=== PATIENT | female | born 2005 | race Caucasian/White ===

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

== ENCOUNTER → 2025-02-27 | Outpatient (CLI) | payer BC, SELFPAY | END | disposition home or self-care (01) | LOC: LABSPEC 11:52 | PROVIDERS: Visit Provider Nurse Practitioner Family | DX: Z11.3 Encounter for screening for infections with a predominantly sexual mode of transmission (principal) | CPT/HCPCS: 87491; 87591 ==

== ENCOUNTER 2025-03-22 00:13 | Emergency (ER) | payer BC, SELFPAY ==
[2025-03-22 00:14] VITALS: BP 143/91; PULSE 95; RESP 18; TEMP 36.8; O2SAT 100; BMI 24.0
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
[2025-03-22 01:04] LABS: Internal QC Validated? YES +Cl - CLEAR BKGD; Pregnancy, Serum, hCG Quali. NEGATIVE Negative
[2025-03-22 01:12] LABS: Anion Gap 13 (5-15); BUN 12 mg/dL (4-19); BUN/Creat Ratio 14.7 RATIO (10-20); Calcium,Total 9.4 mg/dL (7.6-11.0); Carbon Dioxide 19.2 mmol/L (21.0-32.0); Chloride 105 mmol/L (98-108); Estimated Creatinine Clearance 108.60 ml/min (50-250); Glucose 113 mg/dL (70-99); Potassium 3.9 mmol/L (3.3-5.1)
--- OUTSIDE RECORDS SUMMARY | 2025-03-22 01:17 | XMS RPT_ITS | CCD ---
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 L 500.4050, L100.0100 #### [facility] [address] [place], [address] MCHC (RBC) [Mass/Vol] 36.0 g/dL Normal 32-36 [facility] Comment on above: Performed By: #### L 500.4050, L100.0100 #### [facility] [address] [place], [address] MCV (RBC) [Entitic vol] 80.7 fL Normal 78-96 [facility] Comment on above: Performed By: #### L 500.4050, L100.0100 #### [facility] [address] [place], [address] Monocytes/100 WBC (Bld) 2.9 % Low 3-6 [facility] Comment on above: Performed By: #### L 500.4050, L100.0100 #### [facility] [address] [place], [address] Neutrophils/100 WBC (Bld) 83.1 % High 34-64 [facility] Comment on above: Performed By: #### L 500.4050, L100.0100 #### [facility] [address] [place], [address] Nucleated RBC (Bld) [#/Vol] 0 10*3/uL Normal 0-5 [facility] Comment on above: Performed By: #### L 500.4050, L100.0100 #### [facility] [address] [place], [address] Platelet mean volume (Bld) [Entitic vol] 10.2 fL Normal 6.2-12.0 [facility] Comment on above: Performed By: #### L 500.4050, L100.0100 #### [facility] [address] [place], [address] Platelets (Bld) [#/Vol] 230 10*3/uL Normal 150-450 [facility] Comment on above: Performed By: #### L 500.4050, L100.0100 #### [facility] [address] [place], [address] RBC (Bld) [#/Vol] 3.31 10*6/uL Low 4.1-4.8 [facility] Comment on above: Performed By: #### L 500.4050, L100.0100 #### [facility] [address] [place], [address] RDW SD 37.1 fl Normal 35.1-43.9 [facility] Comment on above: Performed By: #### L 500.4050, L100.0100 #### [facility] [address] [place], [address] WBC (Bld) [#/Vol] 12.7 10*3/uL Normal 4.5-13.0 [facility] Comment on above: Performed By: #### L 500.4050, L100.0100 #### [facility] [address] [place], [address] Carbon dioxide, total [Moles /volume] in Central venous bloodOrdered By: Bo Martinez on 10-29-2024 CO2 [Moles/Vol] 18.8 mmol/L Low 21.0-32.0 [facility] Chloride assayOrdered By: Dean Martinez on 10-29-2024 Chloride [Moles/Vol] 104 mmol/L 98-108 [facility] Comprehensive Metabolic Prof ilon 10-29-2024 Albumin [Mass/Vol] 3.6 g/dL Normal 3.5-5.0 [facility] Comment on above: Performed By: #### L 500.4050, L100.0100 #### [facility] [address] [place], [address] Albumin/Globulin [Mass ratio] 1.2 {ratio} Normal 0.9-2.4 [facility] Comment on above: Performed By: #### L 500.4050, L100.0100 #### [facility] [address] [place], [address] ALK PHOS 109 U/L High 35-104 [facility] Comment on above: Performed By: #### L 500.4050, L100.0100 #### [facility] [address] [place], [address] ALT [Catalytic activity/Vol] 11 U/L Normal <=34 [facility] Comment on above: Performed By: #### L 500.4050, L100.0100 #### [facility] [address] [place], [address] AST [Catalytic activity/Vol] 19 U/L Normal <=31 [facility] Comment on above: Performed By: #### L 500.4050, L100.0100 #### [facility] [address] [place], [address] Bilirubin [Mass/Vol] 0.33 mg/dL Normal 0.00-1.30 [facility] Comment on above: Performed By: #### L 500.4050, L100.0100 #### [facility] [address] [place], [address] BUN/CRE 10.0 RATIO Normal 10-20 [facility] Comment on above: Performed By: #### L 500.4050, L100.0100 #### [facility] [address] [place], [address] Calcium [Mass/Vol] 8.8 mg/dL Normal 7.6-11.0 [facility] Comment on above: Performed By: #### L 500.4050, L100.0100 #### [facility] [address] [place], [address] Chloride [Moles/Vol] 104 mmol/L Normal 98-108 [facility] Comment on above: Performed By: #### L 500.4050, L100.0100 #### [facility] [address] [place], [address] CO2 [Moles/Vol] 18.8 mmol/L Low 21.0-32.0 [facility] Comment on above: Performed By: #### L 500.4050, L100.0100 #### [facility] [address] [place], [address] Creatinine [Mass/Vol] 0.61 mg/dL Low 0.70-1.20 [facility] Comment on above: Performed By: #### L 500.4050, L100.0100 #### [facility] [address] [place], [address] GAP 12 Normal 5-15 [facility] Comment on above: Performed By: #### L 500.4050, L100.0100 #### [facility] [address] [place], [address] GFR/1.73 sq M.predicted among non-blacks MDRD (S/P/Bld) [Vol rate/Area] 133 mL/min/{1.73_m2} Normal >60 [facility] Comment on above: Result Comment: mL/m in/1.73m2 CKD-EPI Creatinine Equation (2020) Performed By: #### L 500.4050, L100.0100 #### [facility] [address] [place], [address] Globulin (S) [Mass/Vol] 3.0 g/dL Normal 2.2-4.2 [facility] Comment on above: Performed By: #### L 500.4050, L100.0100 #### [facility] [address] [place], [address] Glucose [Mass/Vol] 111 mg/dL High 70-99 [facility] Comment on above: Performed By: #### L 500.4050, L100.0100 #### [facility] [address] [place], [address] Potassium [Moles/Vol] 3.6 mmol/L Normal 3.3-5.1 [facility] Comment on above: Performed By: #### L 500.4050, L100.0100 #### [facility] [address] [place], [address] Sodium [Moles/Vol] 135 mmol/L Normal 133-145 [facility] Comment on above: Performed By: #### L 500.4050, L100.0100 #### [facility] [address] [place], [address] T PROT 6.5 g/dL Normal 5.9-8.4 [facility] Comment on above: Performed By: #### L 500.4050, L100.0100 #### [facility] [address] [place], [address] Urea nitrogen [Mass/Vol] 6 mg/dL Normal 4-19 [facility] Comment on above: Performed By: #### L 500.4050, L100.0100 #### [facility] [address] [place], [address] Discharge Instructionon 10-16 Discharge Instruction [facility] Medical Records Department [address] [place] [address] Instructions for Home/Discharge Instructions 10/29/24 2357 MR#: [id number] Acct: [id number] Name: NICHOLAS POLLARD Rep #: [id number] : 2005 18 From: aKdi Rivera MD PCP: Nicanor Physician,No Primary Status:REG SD Discharge Instructions DC O2, CPAP, BIPAP needs Home O2 Discharge instructions: No Follow Up Care Test Results: Test results from this visit will be discussed in further detail at your follow-up appointment, if applicable. Discharge Plan Admission Attending Provider: Kadi Rivera Primary Care Provider: Care Physician,No Primary Instructions Print Language: Ivorian Discharge Orders/Prescription s Prescriptions: No Action NK cephalexin 500 mg capsule 500 mg PO Q12H 5 Days Qty: 10 0RF Referrals / Follow Up: Care Physician,No Primary [Primary Care Provider] - Disposition Disposition (needs filled in before D/C Order can be placed): Home, Self Care 10/29/24 2487 Kadi Rivera MD CC: No Primary Care Physician Signed Normal [facility] Emergency Department Summary on 10-29-2024 Emergency Department Summary [facility] Medical Records Department [address] [place] [address] Emergency Department Summary 10/29/24 MR#: [id number] Acct: [id number] Name: NICHOLAS POLLARD Rep #: [id number] : 2005 18 From: Bo Martinez MD PCP: Care Physician,No Primary Status:REG [facility] Location: [place] [address] HPI HPI - Female History of Present Illness Chief Complaint: Vag Bld, Preg Narrative Narrative: 18-year-old female, G2, P0 at approximately 14 weeks gestation presents via EMS status post miscarriage today with continued vaginal bleeding and cramping. She relates history that her first sounds more like she had a blighted ovum. She needed a D C which was performed at an outside facility back in May. Subsequently she became . She is currently approximately 14 weeks gestation. She states that on October 20, approximately 9 days ago she had vaginal spotting. She received RhoGAM, and was supposed to follow-up with Dr. Anderson tomorrow. However, while the vaginal bleeding/spotting had ceased, today she started having increased vaginal bleeding, then she states that this started at noon and at 2 PM she passed the fetus and the placenta. However, she now feels lightheaded and is having continued vaginal bleeding as well as pelvic cramping. PFSH PFS Medical History History of multiple miscarriages Home Medications ???Medication ???Instructions ???Recorded ???Last Taken ???Type NK 10/20/24 Unknown History cephalexin 500 mg capsule 500 mg PO Q12H 5 days #10 caps 02/09 Unknown Rx Allergy/AdvReac Type Severity Reaction Status Date / Time No Known Allergies Allergy Verified 10/29/24 18:57 Surgical History H/O dilation and curettage Social History housing: house Smoking Status: Never smoker ROS ROS ED ROS Narrative Review of systems positive for vaginal bleeding and cramping, passage of products of conception reportedly. Positive lightheadedness. Positive thirst. EXAM Physical Exam Narrative Exam Narrative: Afebrile. Vital signs noted. Nontoxic-appearing. Cardiovascular examination reveals regular rate and rhythm. Lungs are clear to auscultation bilaterally. Abdomen is soft with tenderness to palpation of the suprapubic area but no guarding or rebound. Positive bowel sounds. Neurological examination nonfocal, nonlateralizing. Const Vital Signs: 10/29/24 18:55 10/29/24 20:54 10/29/24 22:00 Temperature 98.6 F Temperature Source Oral Pulse Rate 80 65 84 Respiratory Rate 18 15 15 Blood Pressure 115/76 113/71 109/56 L Blood Pressure Mean 89 85 73 Blood Pressure Source Blood Pressure Position Blood Pressure Location Pulse Ox 98 99 99 Oxygen Delivery Method Room Air Room Air Room Air 10/29/24 22:34 10/29/24 22:44 Temperature 98.6 F 98.6 F Temperature Source Oral Pulse Rate 83 83 Respiratory Rate 18 18 Blood Pressure 109/56 L 109/56 L Blood Pressure Mean 73 Blood Pressure Source Monitor Blood Pressure Position Semi-Fowlers Blood Pressure Location Right Arm Pulse Ox 100 100 Oxygen Delivery Method Room Air Room Air MDM MDM MDM Narrative Medical decision making narrative: I reviewed her prior records and she is a negative blood type. She states the father of the fetus is a positive that is why she received RhoGAM when she had spotting. Concern is for retained products of conception versus complete miscarriage versus continued vaginal bleeding with miscarriage. I reviewed her laboratory work and she has elevated white count of 12.7 with hemoglobin 9.6. I do not feel she needs transfusion. Platelet count 230. Carbon dioxide slightly low at 18.8 which I think is nonspecific, creatinine low at 0.61. Alk phos slightly elevated at 109 which I also think is nonspecific. Chaperoned pelvic examination/speculu m examination did show small amount of blood in the vaginal vault with possible retained products blocking the os. I reviewed the radiology report of the ultrasound, which comments on interval spontaneous with retained products of conception. Patient had a near syncopal episode when she attempted to ambulate to the bathroom. She was given a bolus of IV fluids. I did review her prior medication list and prior ED visits. She was seen on the for the vaginal spotting that she had stated but she was also seen on the with concern of oligohydramnios and possibility of miscarriage. She has received RhoGAM on her visit on the as she had stated. Given her heavy vaginal bleeding since noon, and retained products of conception, I discussed the patient with Dr. Kadi Rivera who (more content not included)... Normal [facility] Eosinophil percentageOrdered By: Bo Martinez on 10-29-2024 Eosinophils/100 WBC (Bld) 0.1 % 0-3 [facility] Erythrocyte distribution wid th ratioOrdered By: Kadi Rivera on 10-29-2024 Erythrocyte distribution width (RBC) [Ratio] 12.8 % 11.6-14.6 [facility] Erythrocyte distribution wid th ratioOrdered By: Bo Martinez on 10-29-2024 Erythrocyte distribution width (RBC) [Ratio] 12.8 % 11.6-14.6 [facility] Erythrocyte distribution wid th standard deviationOrdered By: Kadi Rivera on 10-29-2024 Erythrocyte distribution width (RBC) [Ratio] 37.6 fl 35.1-43.9 [facility] Erythrocyte distribution wid th standard deviationOrdered By: Bo Martinez on 10-29-2024 Erythrocyte distribution width (RBC) [Ratio] 37.1 fl 35.1-43.9 [facility] Glomerular filtration rate ( GFR) estimation/1.73 sq m using serum, plasma, or whole bOrdered By: Bo Martinez on 10-29-2024 GFR/1.73 sq M.predicted among non-blacks MDRD (S/P/Bld) [Vol rate/Area] 133 mL/min/{1.73_m2} >60 [facility] Comment on above: mL/min/1.73m2 CKD-EP I Creatinine Equation (2020) H AND P Exam - OB/GYNon 10-16 H&P Exam - GROUNDMAN [facility] Medical Records Department [address] [place] [address] H P Exam - GROUNDMAN 10/29/24 2216 MR#: [id number] Acct: [id number] Name: NICHOLAS POLLARD Rep #: [id number] : 2005 18 From: Kadi Rivera MD PCP: Care Physician,No Primary Status:REG ER Location: ED HPI - General HPI Narrative NICHOLAS POLLARD, is a 18 F who presents @ 14w2d with incomplete ab with retained POC, passed tissue at home today and has had heavy VB since, retained placenta this evening. she denies any fever. [facility] Medical History History of multiple miscarriages Home Medications ???Medication ???Instructions ???Recorded ???Last Taken ???Type NK 10/20/24 Unknown History cephalexin 500 mg capsule 500 mg PO Q12H 5 days #10 caps 02/09 Unknown Rx Allergy/AdvReac Type Severity Reaction Status Date / Time No Known Allergies Allergy Verified 10/29/24 18:57 Surgical History H/O dilation and curettage Social History housing: house Smoking Status: Never smoker ROS Constitutional Constitutional: Reports systems reviewed and no addt'l complaints, except as documented; Denies as per HPI, change in weight, fatigue, fever(s), malaise, weakness or other Eyes Eyes: Reports systems reviewed and no addt'l complaints, except as documented; Denies as per HPI, change in vision or other ENT HEENT: Reports as per HPI and dizziness; Denies dry mouth, headache(s), loss taste/smell, nasal congestion, nasal discharge, neck pain, sore throat or other Respiratory/Chest Respiratory/Chest: Reports systems reviewed and no addt'l complaints, except as documented Gastrointestinal Gastrointestinal: Reports systems reviewed and no addt'l complaints, except as documented and nausea; Denies vomiting Musculoskeletal Musculoskeletal: Reports systems reviewed and no addt'l complaints, except as documented; Denies back pain or joint pain Neurologic Neurologic: Reports systems reviewed and no addt'l complaints, except as documented Psychiatric Psychiatric: Reports systems reviewed and no addt'l complaints, except as documented Endocrine Endocrinology: Reports systems reviewed and no addt'l complaints, except as documented Hematologic/Lymphat ic Hematologic/Lymphat ic: Reports systems reviewed and no addt'l complaints, except as documented Vital Signs Vital Signs Vital Signs: 10/29/24 18:55 10/29/24 20:54 10/29/24 22:00 Temperature 98.6 F Temperature Source Oral Pulse Rate 80 65 84 Respiratory Rate 18 15 15 Blood Pressure 115/76 113/71 109/56 L Blood Pressure Mean 89 85 73 Pulse Ox 98 99 99 Oxygen Delivery Method Room Air Room Air Room Air Physical Exam Const alert, oriented x3 and no apparent distress HEENT normocephalic Head and Scalp: atraumatic Eyes EOMs intact bilaterally and conjunctivae normal Neck full ROM, no lymphadenopathy, supple and thyroid normal General: trachea midline Lymph Lymphatic: no lymphadenopathy noted Resp normal respiratory effort, no retractions, no use of accessory muscles and clear to auscultation bilaterally Cardio regular rhythm GI normal to inspection, nondistended, normoactive bowel sounds, soft to palpation, non-distended and no masses Inspection: Negative for abdominal distention Back/Spine no CVA tenderness Extremity normal to inspection Skin no rashes or lesions noted Neuro moves all extremities and deep tendon reflexes 2+ bilaterally Motor Exam: clonus absent Psych mental status grossly normal Labs Labs Labs: Blood Type A NEGATIVE Hct 26.7 % (37-46) L Hgb 9.6 g/dL (12.0-15.0) L Obstetrics Ultrasound Assessment Plan (1) Retained products of conception with hemorrhage: (2) Incomplete : PLAN: Plan plan suction d and c now After discussing the patient's diagnosis and treatment plan options, patient wishes to proceed with surgical management. I have discussed with the patient the risks, benefits, and alternatives of the procedure which include but are not limited to risks of anesthesia, bleeding, infection, possible damage to bowel, bladder, or surrounding vasculature which could lead to additional surgery to evaluate any complications. Patient agrees to procedure and wishes to proceed. ACOG/uptodate references given for additional information regarding procedure. 10/29/24 6911 Cosigner Signature (if applicable): CC: Dr. Kadi Rivera MD; No Primary Care Physician Signed Normal [facility] Hematocrit Auto (Bld) [Volum e fraction]Ordered By: Kadi Rivera on 10-29-2024 Hematocrit (Bld) [Volume fraction] 21.9 % Low 37-46 [facility] Hematocrit Auto (Bld) [Volum e fraction]Ordered By: Bo Martinez on 10-29-2024 Hematocrit (Bld) [Volume fraction] 26.7 % Low 37-46 [facility] Hemoglobin measurementOrdere d By: Kadi Rivera on 10-29-2024 Hemoglobin (Bld) [Mass/Vol] 7.7 g/dL Low 12.0-15.0 [facility] Hemoglobin measurementOrdere d By: Bo Martinez on 10-29-2024 Hemoglobin (Bld) [Mass/Vol] 9.6 g/dL Low 12.0-15.0 [facility] Immature granulocytes/100 WB C Auto (Bld)Ordered By: Bo Martinez on 10-29-2024 Immature granulocytes/100 WBC (Bld) 0.800 % 0.0-0.9 [facility] Comment on above: IG% - Immature Granu locytes (promyelocytes, myelocytes and metamyelocytes) > 1% indicates that a LEFT SHIFT is Present. Laboratory - Chemistry and C hemistry - challengeOrdered By: Bo Martinez on 10-29-2024 AST [Catalytic activity/Vol] 19 U/L <32 [facility] MCV (mean corpuscular volume ) determinationOrdered By: Kadi Rivera on 10-29-2024 MCV (RBC) [Entitic vol] 82.0 fL 78-96 [facility] MCV (mean corpuscular volume ) determinationOrdered By: Bo Martinez on 10-29-2024 MCV (RBC) [Entitic vol] 80.7 fL 78-96 [facility] Mean corpuscular hemoglobin (MCH) determinationOrdered By: Kadi Rivera on 10-29-2024 MCH (RBC) [Entitic mass] 28.8 pg 25.0-35.0 [facility] Mean corpuscular hemoglobin (MCH) determinationOrdered By: Bo Martinez on 10-29-2024 MCH (RBC) [Entitic mass] 29.0 pg 25.0-35.0 [facility] Mean corpuscular hemoglobin concentration (MCHC) determinationOrdered By: Kadi Rivera on 10-29-2024 MCHC (RBC) [Mass/Vol] 35.2 g/dL -36 [facility] Mean corpuscular hemoglobin concentration (MCHC) determinationOrdered By: Bo Martinez on 10-29-2024 MCHC (RBC) [Mass/Vol] 36.0 g/dL - [facility] Mean platelet volume determi nationOrdered By: Kadi Rivera on 10-29-2024 Platelet mean volume (Bld) [Entitic vol] 10.3 fL 6.2-12.0 [facility] Mean platelet volume determi nationOrdered By: Bo Martinez on 10-29-2024 Platelet mean volume (Bld) [Entitic vol] 10.2 fL 6.2-12.0 [facility] Monocyte percentageOrdered B y: Bo Martinez on 10-29-2024 Monocytes/100 WBC (Bld) 2.9 % Low 3-6 [facility] Neutrophil percentageOrdered By: Bo Martinez on 10-29-2024 Neutrophils/100 WBC (Bld) 83.1 % High 34-64 [facility] Nucleated red blood cell per centageOrdered By: Bo Martinez on 10-29-2024 Nucleated RBC/100 WBC (Bld) [Ratio] 0 % 0-5 [facility] Operative Reporton Operative Report [facility] Medical Records Department [address] [facility] [place] [address] Operative Report 10/29/24 8712 MR#: [id number] Acct: [id number] Name: NICHOLAS POLLARD Rep #: [id number] : 2005 18 From: Kadi Rivera MD PCP: Care Physician,No Primary Status:[facility] Location: [place] [address] Problems Associated Problem List Diagnoses (1) Incomplete : (2) Retained products of conception with hemorrhage: Procedures Urinary/Genital [id number]: [id number] Trmt of incomplete Ab, any TM Operative Report (Standard) Operative Information Date of Procedure: 10/29/24 Pre-Operative Diagnosis: see problem list comments Post-Operative Diagnosis: same Surgery/Procedure Performed: suction dilation and curettage cabin outfitter: No Type of Anesthesia: IV Sedation and Local RN Documented Start/Stop Times: Operation Date: 10/29/24 23:00 Case Time Anesthesia Start 10/29/24 23:12 Into Room 10/29/24 23:12 Procedure Start 10/29/24 23:32 Procedure End 10/29/24 23:52 Procedure Start Time: 23:32 Procedure Stop Time: 23:52 Select all DRAINS/GRAFTS/IMPLA NTS that apply: None Estimated Blood Loss: 100 Specimen collected: Yes Description of specimen(s) removed: retained POC Description of surgery: Patient was taken to the operating room and placed under MAC local anesthesia. She was prepped and draped in the normal sterile fashion the dorsal lithotomy position. Bladder was drained of clear urine and anterior lip of the cervix was grasped and the uterus sounded to 8 cm. Cervix was progressively dilated to allow passage of a 8mm suction curette. Progressive passes were made removing the retained products of conception without complication. Sharp curettage confirmed complete removal of the retained products. bleeding persisted at cervical os, pressure applied and monsels paste and surgiflow used to obtain hemostasis. All instruments were removed from the vagina and excellent hemostasis was noted and the patient was taken to recovery in stable condition. Surgical Findings: retained placenta Complications Complications: No 10/29/24 1497 Cosigner Signature (if applicable): CC: Dr. Kadi Rivera MD; No Primary Care Physician Signed Normal [facility] Platelet countOrdered By: Fabian Rivera on 10-29-2024 Platelets (Bld) [#/Vol] 204 10*3/uL 150-450 [facility] Platelet countOrdered By: Dean Martinez on 10-29-2024 Platelets (Bld) [#/Vol] 230 10*3/uL 150-450 [facility] Potassium measurement (mass/ volume)Ordered By: Bo Martinez on 10-29-2024 Potassium (Unsp spec) [Mass/Vol] 3.6 mmol/L 3.3-5.1 [facility] RBC Auto (Bld) [#/Vol]Ordere d By: Kadi Rivera on 10-29-2024 RBC (Bld) [#/Vol] 2.67 10*6/uL Low 4.1-4.8 [facility] RBC Auto (Bld) [#/Vol]Ordere d By: Bo Martinez on 10-29-2024 RBC (Bld) [#/Vol] 3.31 10*6/uL Low 4.1-4.8 [facility] Serum creatinine measurement (mass/volume)Ordered By: Bo Martinez on 10-29-2024 Creatinine [Mass/Vol] 0.61 mg/dL Low 0.70-1.20 [facility] Serum globulin measurementOr dered By: Bo Martinez on 10-29-2024 Globulin (S) [Mass/Vol] 3.0 g/dL 2.2-4.2 [facility] Serum glucose measurement (m ass/volume)Ordered By: Bo Martinez on 10-29-2024 Glucose [Mass/Vol] 111 mg/dL High 70-99 [facility] Serum or plasma alanine iqbal otransferase (ALT) measurementOrdered By: Bo Martinez on 10-29-2024 ALT [Catalytic activity/Vol] 11 U/L <35 [facility] Serum or plasma albumin namita urement (mass/volume)Ordered By: Bo Martinez on 10-29-2024 Albumin [Mass/Vol] 3.6 g/dL 3.5-5.0 [facility] Serum or plasma albumin/glob ulin mass ratioOrdered By: Bo Martinez on 10-29-2024 Albumin/Globulin [Mass ratio] 1.2 {ratio} 0.9-2.4 [facility] Serum or plasma alkaline mojgan sphatase measurementOrdered By: Bo Harveya on 10-29-2024 ALP [Catalytic activity/Vol] 109 U/L High 35-104 [facility] Serum or plasma calcium namita urement (mass/volume)Ordered By: Bo Candiceflora on 10-29-2024 Calcium [Mass/Vol] 8.8 mg/dL 7.6-11.0 [facility] Serum or plasma urea nitroge n measurement (mass/volume)Ordered By: Bo Reodica on 10-29-2024 Urea nitrogen [Mass/Vol] 6 mg/dL 4-19 [facility] Sodium levelOrdered By: Bo Candiceflora on 10-29-2024 Sodium [Moles/Vol] 135 mmol/L 133-145 [facility] Surgery Specimen Level Alden 10-29-2024 Surgery Specimen Level IV ----- Patient Age/Sex Location Account Attending Physician NICHOLAS POLLARD 18/ [facility] [id number] Dr. Kadi Rivera MD Specimen: [id number] Received: 10/30/24 Status: MARIAH Ramos Num: [id number] Spec Type: PROD CONC Subm Dr: Dr. Kadi Rivera MD HEADER OPERATION: Dilation and curettage, suction PRE-OP DIAGNOSIS: Retained products of conception with hemorrhage, incomplete TISSUE SUBMITTED: A- Products of conception MICROSCOPIC DIAGNOSIS A. Uterine contents: * Inflamed and degenerating decidua with hemorrhage and immature chorionic villi consistent with intrauterine products of conception MICROSCOPIC DESCRIPTION Slides are reviewed. GROSS DESCRIPTION A. Received in formalin labeled with the patient's name and date of . Designated as products of conception is a 30 g, 9.0 x 8.0 x 1.3 cm aggregate of dark red-brown soft tissue fragments, blood clot and papilliferous tissue fragments (suspicious for chorionic villi). parts are not present. [employer] Professional sections are submitted in 3 cassettes. [place] 10/30/2024 CPT:32328 Patient Age/Sex Location Account Attending Physician NICHOLAS POLLARD / [facility] [id number] Dr. Kadi Rivera MD Signed (signatur e on file) Dr. Shelia Godfrey, 11/01/24 1357 Normal [facility] Comment on above: Performed By: #### B 882-1, Rosas(Adam) IG #### [facility] Laboratory [address] [facility], [address] Total proteinOrdered By: Suzy Martinez on 10-29-2024 Protein [Mass/Vol] 6.5 g/dL 5.9-8.4 [facility] Transvaginal w/Preg USon Transvaginal w/Preg US [facility] Imaging Services [address] [place], [place] [address] Transvaginal w/Preg US MR#: [id number] Acct: [id number] Name: NICHOLAS POLLARD Rep #: [id number] : 2005 F 18 From: Jamaal Viera MD PCP: Care Physician,No Primary Status: REG ER Study: Transvaginal w/Preg US Date of Exam: 10/29/24 Exam# [id number] Ordering Dr: Bo Martinez MD PROCEDURE: TRANSVAGINAL W/PREG US 10/29/2024 REASON FOR EXAM: VAGINAL BLEEDING WITH TECHNIQUE: TRANSVAGINAL W/PREG US COMPARISON: 10/25/2024 FINDINGS: Within the uterine cavity, there is no longer an IUP, which as noted previously. The endometrial stripe measures 2.5 cm with some vascularity consistent with retained products of conception. Right ovary measures 1 x 1 x 2 cm with good blood flow. The left ovary measures 1 x 3 x 3 cm with good blood flow, and a corpus luteal cyst. No significant pelvic free fluid. US/Transvaginal w/Preg US IMPRESSION: Interval spontaneous , suspected retained products of conception. Progress imaging as clinically determined. Reading Location: [place] [address] CC: Dr. Bo Martinez MD; No Primary Care Physician Line Installer Repairer: Signed Normal [facility] White blood cell (WBC) count Ordered By: Kadi Rivera on 10-29-2024 WBC (Bld) [#/Vol] 10.6 10*3/uL 4.5-13.0 [facility] White blood cell (WBC) count Ordered By: Bo Martinez on 10-29-2024 WBC (Bld) [#/Vol] 12.7 10*3/uL 4.5-13.0 [facility] Absolute lymphocyte countOrd ered By: Wally Ames on 10-25-2024 Lymphocytes Auto (Unsp spec) [#/Vol] 1.92 10*3/uL 0.83-4.51 [facility] Absolute neutrophil countOrd ered By: Wally Ames on 10-25-2024 Neutrophils (Bld) [#/Vol] 6.4 10*3/uL 2.0-7.7 [facility] Anion gap in Serum or Plasma Ordered By: Wally Ames on 10-25-2024 Anion gap [Moles/Vol] 13 mmol/L 5-15 [facility] Automated lymphocyte count a s percentage of total leukocytesOrdered By: Wally Ames on 10-25-2024 Lymphocytes/100 WBC Auto (Unsp spec) 21.9 % Low 25-45 [facility] BUN/creatinine ratioOrdered By: Wally Ames on 10-25-2024 Urea nitrogen/Creatinine [Mass ratio] 9.2 mg/mg Low - [facility] Basophil percentageOrdered B y: Wally Ames on 10-25-2024 Basophils/100 WBC (Bld) 0.5 % 0-1 [facility] Bilirubin Test strip Ql (U)O rdered By: Wally Ames on 10-25-2024 Bilirubin Ql (U) 1 mg/dL High Negative [facility] Comment on above: COLOR OF URINE MAY A FFECT DIPSTICK RESULTS. Bilirubin, totalOrdered By: Wally Ames on 10-25-2024 Bilirubin [Mass/Vol] 0.54 mg/dL 0.00-1.30 [facility] CBC W/Diff, Automatedon 10-16-2024 Absolute Lymph 1.92 X10 3/uL Normal 0.83-4.51 [facility] Comment on above: Performed By: #### L 501.2450, L500.4050, L100.0100 #### [facility] Laboratory [address] [place], [address] Absolute Neut 6.4 X10 3/uL Normal 2.0-7.7 [facility] Comment on above: Performed By: #### L 501.2450, L500.4050, L100.0100 #### [facility] Laboratory [address] [place], [address] Basophils/100 WBC (Bld) 0.5 % Normal 0-1 [facility] Comment on above: Performed By: #### L 501.2450, L500.4050, L100.0100 #### [facility] [address] [place], [address] Eosinophils/100 WBC (Bld) 0.2 % Normal 0-3 [facility] Comment on above: Performed By: #### L 501.2450, L500.4050, L100.0100 #### [facility] Laboratory [address] [place], [address] Erythrocyte distribution width (RBC) [Ratio] 12.7 % Normal 11.6-14.6 [facility] Comment on above: Performed By: #### L 501.2450, L500.4050, L100.0100 #### [facility] Laboratory [address] [place], [address] Hematocrit (Bld) [Volume fraction] 36.1 % Low 37-46 [facility] Comment on above: Performed By: #### L 501.2450, L500.4050, L100.0100 #### [facility] Laboratory [address] [place], [address] Hemoglobin (Bld) [Mass/Vol] 12.7 g/dL Normal 12.0-15.0 [facility] Comment on above: Performed By: #### L 501.2450, L500.4050, L100.0100 #### [facility] [address] [place], [address] IG% 0.500 Normal 0.0-0.9 [facility] Comment on above: Result Comment: IG% - Immature Granulocytes (promyelocytes, myelocytes and metamyelocytes) > 1% indicates that a LEFT SHIFT is Present. Performed By: #### L 501.2450, L500.4050, L100.0100 #### [facility] [address] [place], [address] Lymphocytes/100 WBC (Bld) 21.9 % Low 25-45 [facility] Comment on above: Performed By: #### L 501.2450, L500.4050, L100.0100 #### [facility] Laboratory [address] [place], [address] MCH (RBC) [Entitic mass] 28.9 pg Normal 25.0-35.0 [facility] Comment on above: Performed By: #### L 501.2450, L500.4050, L100.0100 #### [facility] [address] [place], [address] MCHC (RBC) [Mass/Vol] 35.2 g/dL Normal 32-36 [facility] Comment on above: Performed By: #### L 501.2450, L500.4050, L100.0100 #### [facility] Laboratory [address] [place], [address] MCV (RBC) [Entitic vol] 82.2 fL Normal 78-96 [facility] Comment on above: Performed By: #### L 501.2450, L500.4050, L100.0100 #### [facility] [address] [place], [address] Monocytes/100 WBC (Bld) 3.6 % Normal 3-6 [facility] Comment on above: Performed By: #### L 501.2450, L500.4050, L100.0100 #### [facility] [address] [place], [address] Neutrophils/100 WBC (Bld) 73.3 % High 34-64 [facility] Comment on above: Performed By: #### L 501.2450, L500.4050, L100.0100 #### [facility] [address] [place], [address] Nucleated RBC (Bld) [#/Vol] 0 10*3/uL Normal 0-5 [facility] Comment on above: Performed By: #### L 501.2450, L500.4050, L100.0100 #### [facility] Laboratory [address] [place], [address] Platelet mean volume (Bld) [Entitic vol] 9.6 fL Normal 6.2-12.0 [facility] Comment on above: Performed By: #### L 501.2450, L500.4050, L100.0100 #### [facility] Laboratory [address] [place], [address] Platelets (Bld) [#/Vol] 243 10*3/uL Normal 150-450 [facility] Comment on above: Performed By: #### L 501.2450, L500.4050, L100.0100 #### [facility] [address] [place], [address] RBC (Bld) [#/Vol] 4.39 10*6/uL Normal 4.1-4.8 [facility] Comment on above: Performed By: #### L 501.2450, L500.4050, L100.0100 #### [facility] [address] [place], [address] RDW SD 37.8 fl Normal 35.1-43.9 [facility] Comment on above: Performed By: #### L 501.2450, L500.4050, L100.0100 #### [facility] [address] [place], [address] WBC (Bld) [#/Vol] 8.8 10*3/uL Normal 4.5-13.0 [facility] Comment on above: Performed By: #### L 501.2450, L500.4050, L100.0100 #### [facility] [address] [place], [address] Carbon dioxide, total [Moles /volume] in Central venous bloodOrdered By: Wally Ames on 10-25-2024 CO2 [Moles/Vol] 20.3 mmol/L Low 21.0-32.0 [facility] Chloride assayOrdered By: Eron Ames on 10-25-2024 Chloride [Moles/Vol] 102 mmol/L 98-108 [facility] Comprehensive Metabolic Prof ilon 10-25-2024 Albumin [Mass/Vol] 4.1 g/dL Normal 3.5-5.0 [facility] Comment on above: Performed By: #### L 501.2450, L500.4050, L100.0100 #### [facility] [address] [place], [address] Albumin/Globulin [Mass ratio] 1.1 {ratio} Normal 0.9-2.4 [facility] Comment on above: Performed By: #### L 501.2450, L500.4050, L100.0100 #### [facility] [address] [place], [address] ALK PHOS 108 U/L High 35-104 [facility] Comment on above: Performed By: #### L 501.2450, L500.4050, L100.0100 #### [facility] [address] [place], [address] ALT [Catalytic activity/Vol] 14 U/L Normal <=34 [facility] Comment on above: Performed By: #### L 501.2450, L500.4050, L100.0100 #### [facility] [address] [place], [address] AST [Catalytic activity/Vol] 27 U/L Normal <=31 [facility] Comment on above: Result Comment: Hemo lysis present, Results??could be affected. ?? Performed By: #### L 501.2450, L500.4050, L100.0100 #### [facility] [address] [place], [address] Bilirubin [Mass/Vol] 0.54 mg/dL Normal 0.00-1.30 [facility] Comment on above: Performed By: #### L 501.2450, L500.4050, L100.0100 #### [facility] [address] [place], [address] BUN/CRE 9.2 RATIO Low 10-20 [facility] Comment on above: Performed By: #### L 501.2450, L500.4050, L100.0100 #### [facility] [address] [place], [address] Calcium [Mass/Vol] 9.5 mg/dL Normal 7.6-11.0 [facility] Comment on above: Performed By: #### L 501.2450, L500.4050, L100.0100 #### [facility] [address] [place], [address] Chloride [Moles/Vol] 102 mmol/L Normal 98-108 [facility] Comment on above: Performed By: #### L 501.2450, L500.4050, L100.0100 #### [facility] [address] [place], [address] CO2 [Moles/Vol] 20.3 mmol/L Low 21.0-32.0 [facility] Comment on above: Performed By: #### L 501.2450, L500.4050, L100.0100 #### [facility] [address] [place], [address] Creatinine [Mass/Vol] 0.71 mg/dL Normal 0.70-1.20 [facility] Comment on above: Performed By: #### L 501.2450, L500.4050, L100.0100 #### [facility] [address] [place], [address] ECRCL 120.29 ml/min Normal 50-250 [facility] Comment on above: Performed By: #### L 501.2450, L500.4050, L100.0100 #### [facility] [address] [place], [address] GAP 13 Normal 5-15 [facility] Comment on above: Performed By: #### L 501.2450, L500.4050, L100.0100 #### [facility] [address] [place], [address] GFR/1.73 sq M.predicted among non-blacks MDRD (S/P/Bld) [Vol rate/Area] 127 mL/min/{1.73_m2} Normal >60 [facility] Comment on above: Result Comment: mL/m in/1.73m2 CKD-EPI Creatinine Equation (2020) Performed By: #### L 501.2450, L500.4050, L100.0100 #### [facility] [address] [place], [address] Globulin (S) [Mass/Vol] 3.8 g/dL Normal 2.2-4.2 [facility] Comment on above: Performed By: #### L 501.2450, L500.4050, L100.0100 #### [facility] [address] [place], [address] Glucose [Mass/Vol] 107 mg/dL High 70-99 [facility] Comment on above: Performed By: #### L 501.2450, L500.4050, L100.0100 #### [facility] [address] [place], [address] Potassium [Moles/Vol] 3.8 mmol/L Normal 3.3-5.1 [facility] Comment on above: Result Comment: Hemo lysis present, Results??could be affected. ?? Performed By: #### L 501.2450, L500.4050, L100.0100 #### [facility] [address] [place], [address] Sodium [Moles/Vol] 135 mmol/L Normal 133-145 [facility] Comment on above: Performed By: #### L 501.2450, L500.4050, L100.0100 #### [facility] [address] [place], [address] T PROT 7.9 g/dL Normal 5.9-8.4 [facility] Comment on above: Performed By: #### L 501.2450, L500.4050, L100.0100 #### [facility] [address] [place], [address] Urea nitrogen [Mass/Vol] 6 mg/dL Normal 4-19 [facility] Comment on above: Performed By: #### L 501.2450, L500.4050, L100.0100 #### [facility] [address] [place], [address] Emergency Department Summary on 10-25-2024 Emergency Department Summary [facility] Medical Records Department [address] [place] [address] Emergency Department Summary 10/25/24 MR#: [id number] Acct: [id number] Name: NICHOLAS POLLARD Rep #: [id number] : 2005 18 From: Wally Ames DO PCP: Care Physician,No Primary Status:REG ER Location: ED HPI History of Present Illness Chief Complaint: General Illness Narrative Narrative: Patient is a 18-year-old female G2, P0 with 1 miscarriage with a 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 Patient states that she is currently 13 weeks she was here on Tuesday she has not followed up with an GROUNDMAN. States that she had vaginal bleeding on Tuesday therefore she originally came here. She states that she had been told to stay in bed unless otherwise getting food. She states that she went downstairs to get something to eat and came back up and noted that she went to the bathroom and then noted that when she laid down she felt like she was peeing stuff she had clear fluid coming out of her vaginal region. Patient denies any vaginal bleeding. [facility] Medical History History of multiple miscarriages Home Medications ???Medication ???Instructions ???Recorded ???Last Taken ???Type NK 10/20/24 Unknown History cephalexin 500 mg capsule 500 mg PO Q12H 5 days #10 caps 02/09 Unknown Rx Allergy/AdvReac Type Severity Reaction Status [...] not limited to premature rupture membranes, threatened miscarriage, UTI. Once workup is obtained reviewed she will be reevaluated. Patient's CBC reviewed and showed no evidence leukocytosis white blood count was 8.8, he was 12.7, platelet count of 243. Patient sodium was 135, potassium normal at 3.8, creatinine normal at 0.71. Patient's lipase was 22 hCG quant was 88,283 on October 20, 2024 was 90,309. Patient urinalysis reviewed showed 500 leukocyte esterase negative nitrates 50-100 white cells with 1+ bacteria she was given a gram of Rocephin she will be [...] miscarry. She did note that her mother had several miscarriages in the past and her family has multiple miscarria (more content not included)... Normal [facility] Eosinophil percentageOrdered By: Wally Ames on 10-25-2024 Eosinophils/100 WBC (Bld) 0.2 % 0-3 [facility] Erythrocyte distribution wid th ratioOrdered By: Wally Ames on 10-25-2024 Erythrocyte distribution width (RBC) [Ratio] 12.7 % 11.6-14.6 [facility] Erythrocyte distribution wid th standard deviationOrdered By: Wally Ames on 10-25-2024 Erythrocyte distribution width (RBC) [Ratio] 37.8 fl 35.1-43.9 [facility] Glomerular filtration rate ( GFR) estimation/1.73 sq m using serum, plasma, or whole bOrdered By: Wally Ames on 10-25-2024 GFR/1.73 sq M.predicted among non-blacks MDRD (S/P/Bld) [Vol rate/Area] 127 mL/min/{1.73_m2} >60 [facility] Comment on above: mL/min/1.73m2 CKD-EP I Creatinine Equation (2020) Hematocrit Auto (Bld) [Volum e fraction]Ordered By: Wally Ames on 10-25-2024 Hematocrit (Bld) [Volume fraction] 36.1 % Low 37-46 [facility] Hemoglobin measurementOrdere d By: Wally Ames on 10-25-2024 Hemoglobin (Bld) [Mass/Vol] 12.7 g/dL 12.0-15.0 [facility] Immature granulocytes/100 WB C Auto (Bld)Ordered By: Wally Ames on 10-25-2024 Immature granulocytes/100 WBC (Bld) 0.500 % 0.0-0.9 [facility] Comment on above: IG% - Immature Granu locytes (promyelocytes, myelocytes and metamyelocytes) > 1% indicates that a LEFT SHIFT is Present. Init OB < 14Wks USon 025 Init OB < 14Wks US [facility] Imaging Services [address] [place], [place] [id number] Init OB < 14Wks US MR#: [id number] Acct: [id number] Name: NICHOLAS POLLARD Rep #: [id number] : 2005 F 18 From: Stevo Lao MD PCP: Care Physician,No Primary Status: REG ER Study: Init OB < 14Wks US Date of Exam: 10/25/24 Exam# [id number] Ordering Dr: Wally Ames DO PROCEDURE: INIT OB < 14WKS US 10/25/2024 REASON FOR EXAM: VAGINAL DISCHARGE TECHNIQUE: INIT OB < 14WKS US COMPARISON: None. FINDINGS Breech presentation. heart rate of 161 beats per minute. Maximum vertical pocket of 0.4 cm. Placental grade 0. Anteriorly located placenta that is not low-lying. Estimated gestational age of 13 weeks 5 days by crown-rump length. There [...] free fluid in the cul-de-sac. Reading Location: [id number] CC: Dr. Wally Ames, DO; No Primary Care Physician Line Installer Repairer: Signed Normal [facility] Ketones Test strip Ql (U)Ord ered By: Wally Ames on 10-25-2024 Ketones Ql (U) 5 mg/dl High Negative [facility] Laboratory - Chemistry and C hemistry - challengeOrdered By: Wally Ames on 10-25-2024 AST [Catalytic activity/Vol] 27 U/L <32 [facility] Comment on above: Hemolysis present, R esults could be affected. Lipaseon 10-25-2024 Lipase [Catalytic activity/Vol] 22 U/L Normal 13-75 [facility] Comment on above: Result Comment: Plea se note: LIPASE revised reference range effective 22. New Lipase methodology. Expected to produce lower values than the previous assay method. NEW Reference Range: 13 - 75 U/L Performed By: #### L 501.2450, L500.4050, L100.0100 #### [facility] [address], [address] Lipase measurementOrdered By : Wally Ames on 10-25-2024 Lipase [Catalytic activity/Vol] 22 U/L 13-75 [facility] Comment on above: Please note:LIPASE r evised reference range effective 22. New Lipase methodology. Expected to produce lower values than the previous assay method. NEW Reference Range: 13 - 75 U/L MCV (mean corpuscular volume ) determinationOrdered By: Wally Ames on 10-25-2024 MCV (RBC) [Entitic vol] 82.2 fL 78-96 [facility] Mean corpuscular hemoglobin (MCH) determinationOrdered By: Wally Ames on 10-25-2024 MCH (RBC) [Entitic mass] 28.9 pg 25.0-35.0 [facility] Mean corpuscular hemoglobin concentration (MCHC) determinationOrdered By: Wally Ames on 10-25-2024 MCHC (RBC) [Mass/Vol] 35.2 g/dL 32-36 [facility] Mean platelet volume determi nationOrdered By: Wally Ames on 10-25-2024 Platelet mean volume (Bld) [Entitic vol] 9.6 fL 6.2-12.0 [facility] Microscopic analysis of urin e for red blood cells (RBC)Ordered By: Wally Ames on 10-25-2024 Microscopic analysis of urine for red blood cells (RBC) 0-5 SEEN /hpf 0-5 [facility] Monocyte percentageOrdered B y: Wally Ames on 10-25-2024 Monocytes/100 WBC (Bld) 3.6 % 3-6 [facility] Mucus LM Ql (Urine sed)Order ed By: Wally Ames on 10-25-2024 Mucus Ql (Urine sed) 1+ /hpf [facility] Neutrophil percentageOrdered By: Wally Ames on 10-25-2024 Neutrophils/100 WBC (Bld) 73.3 % High 34-64 [facility] Nitrite Test strip Ql (U)Ord ered By: Wally Ames on 10-25-2024 Nitrite Ql (U) Negative Negative [facility] Nucleated red blood cell per centageOrdered By: Wally Ames on 10-25-2024 Nucleated RBC/100 WBC (Bld) [Ratio] 0 % 0-5 [facility] Platelet countOrdered By: Eron Ames on 10-25-2024 Platelets (Bld) [#/Vol] 243 10*3/uL 150-450 [facility] Potassium measurement (mass/ volume)Ordered By: Wally Ames on 10-25-2024 Potassium (Unsp spec) [Mass/Vol] 3.8 mmol/L 3.3-5.1 [facility] Comment on above: Hemolysis present, R esults could be affected. Protein Test strip Ql (U)Ord ered By: Wally Ames on 10-25-2024 Protein Ql (U) 30 mg/dl High Negative [facility] RBC Auto (Bld) [#/Vol]Ordere d By: Wally Ames on 10-25-2024 RBC (Bld) [#/Vol] 4.39 10*6/uL 4.1-4.8 [facility] Serum creatinine measurement (mass/volume)Ordered By: Wally Ames on 10-25-2024 Creatinine [Mass/Vol] 0.71 mg/dL 0.70-1.20 [facility] Serum globulin measurementOr dered By: Wally Ames on 10-25-2024 Globulin (S) [Mass/Vol] 3.8 g/dL 2.2-4.2 [facility] Serum glucose measurement (m ass/volume)Ordered By: Wally Ames on 10-25-2024 Glucose [Mass/Vol] 107 mg/dL High 70-99 [facility] Serum human chorionic gonado tropin detection for pregnancyOrdered By: Wally Ames on 10-25-2024 HCG ( test[place] [address] mIU/mL High <9 [facility] Comment on above: Gestational Age0.2-1 Week: 5-50 mIU/mL1-2 Weeks: 50-500 mIU/mL2-3 Weeks: 100-5000 mIU/mL3-4 Weeks: 500-10,000 mIU/mL4-5 Weeks:1000-50,000 mIU/mL5-6 Weeks: 10,000-100,000 mIU/mL6-8 Weeks: 15,000-200,000 mIU/mL2-3 Months:10,000-100,000 mIU/mL Serum or plasma alanine iqbal otransferase (ALT) measurementOrdered By: Wally Ames on 10-25-2024 ALT [Catalytic activity/Vol] 14 U/L <35 [facility] Serum or plasma albumin namita urement (mass/volume)Ordered By: Wally Ames on 10-25-2024 Albumin [Mass/Vol] 4.1 g/dL 3.5-5.0 [facility] Serum or plasma albumin/glob ulin mass ratioOrdered By: Wally Ames on 10-25-2024 Albumin/Globulin [Mass ratio] 1.1 {ratio} 0.9-2.4 [facility] Serum or plasma alkaline mojgan sphatase measurementOrdered By: Wally Ames on 10-25-2024 ALP [Catalytic activity/Vol] 108 U/L High 35-104 [facility] Serum or plasma calcium namita urement (mass/volume)Ordered By: Wally Ames on 10-25-2024 Calcium [Mass/Vol] 9.5 mg/dL 7.6-11.0 [facility] Serum or plasma urea nitroge n measurement (mass/volume)Ordered By: Wally Ames on 10-25-2024 Urea nitrogen [Mass/Vol] 6 mg/dL 4-19 [facility] Sodium levelOrdered By: Jimbo Ames on 10-25-2024 Sodium [Moles/Vol] 135 mmol/L 133-145 [facility] Squamous epithelial cells de tection in urine sediment by light microscopyOrdered By: Wally Ames on 10-25-2024 Epithelial cells.squamous LM Ql (Urine sed) 10-25 SEEN /hpf - [facility] Total proteinOrdered By: Mio Ames on 10-25-2024 Protein [Mass/Vol] 7.9 g/dL 5.9-8.4 [facility] Urinalysis, Completeon 10-25 EPI,SQUAMOUS 10-25 SEEN Normal - [facility] Comment on above: Order Comment: CLEAN CATCH Performed By: #### Robinson 882-1Rosas(D) IG #### [facility] [address] [place], [address] RBC 0-5 SEEN Normal 0-5 [facility] Comment on above: Order Comment: CLEAN CATCH Performed By: #### Robinson 882-1Rosas(D) IG #### [facility] [address] [place], [address] BACTERIA 1+ /hpf Normal None Seen [facility] Comment on above: Order Comment: CLEAN CATCH Performed By: #### Robinson 882-1Rosas(D) IG #### [facility] [address] [place], [address] Mucus Ql (Urine sed) 1+ /hpf Normal [facility] Comment on above: Order Comment: CLEAN CATCH Performed By: #### Robinson 882-1, JUSTINho(D) IG #### [facility] [address] [place], [address] WBC 50-100 SEEN Normal 0-5 [facility] Comment on above: Order Comment: CLEAN CATCH Performed By: #### B 882-1, Rosas(D) IG #### [facility] [address] [place], [address] Urine clarityOrdered By: Mio Ames on 10-25-2024 Clarity (U) Clear Clear [facility] Urine color determinationOrd ered By: Wally Ames on 10-25-2024 Color (U) Yellow Yellow [facility] Urine glucose detectionOrder ed By: Wally Ames on 10-25-2024 Glucose Ql (U) Normal mg/dl Normal [facility] Urine leukocyte esterase det ection by dipstickOrdered By: Wally Ames on 10-25-2024 Leukocyte esterase Test strip Ql (U) 500 /ul High Negative [facility] Urine pHOrdered By: Wally goss on 10-25-2024 pH (U) 6.0 [pH] 5.0 - 8.0 [facility] Urine sediment bacteria coun t by microscopy (number/high power field)Ordered By: Wally Ames on 10-25-2024 Bacteria LM.HPF (Urine sed) [#/Area] 1 /[HPF] None Seen [facility] Urine specific gravity measu rementOrdered By: Wally Ames on 10-25-2024 Specific gravity (U) [Rel density] 1.025 1.002-1.030 [facility] Urine urobilinogen measureme ntOrdered By: Wally Ames on 10-25-2024 Urobilinogen Ql (U) 4 mg/dl High Normal [facility] White blood cell (WBC) count Ordered By: Wally Ames on 10-25-2024 WBC (Bld) [#/Vol] 8.8 10*3/uL 4.5-13.0 [facility] White blood cell countOrdere d By: Wally Ames on 10-25-2024 White blood cell count 50-100 SEEN /hpf 0-5 [facility] hCG Titer Quant., Serumon HCG QUANT. 74832 mIU/mL High <9 non-preg [facility] Comment on above: Result Comment: Gest ational Age 0.2-1 Week: 5-50 mIU/mL 1-2 Weeks: 50-500 mIU/mL 2-3 Weeks: 100-5000 mIU/mL 3-4 Weeks: 500-10,000 mIU/mL 4-5 Weeks:1000-50,000 mIU/mL 5-6 Weeks: 10,000-100,000 mIU/mL 6-8 Weeks: 15,000-200,000 mIU/mL 2-3 Months:10,000-100,000 mIU/mL Performed By: #### B 882-1, BRho(D) IG #### [facility] [address] [place], [place], [address] [id number] 10-20-2024 ABO and Rh group Nom (Bld) Blood group A Rh(D) negative Normal [facility] Comment on above: Order Comment: Comme nts: Age > 13 Weeks Performed By: #### Robinson 882-1, BRho(D) IG #### [facility] [address] [place], [place], [address] BRho(D) IGon 10-20-2024 Rho(D) IG Normal [facility] Comment on above: Result Comment: [id number] [id number] Rho(D) IG PRSMD TRFSD 10/20/242118 Performed By: #### B 882-1, BRho(D) IG #### [facility] [address] [place], [place], [address] Bilirubin Test strip Ql (U)O rdered By: Sid Piña on 10-20-2024 Bilirubin Ql (U) Negative Negative [facility] Emergency Department Summary on 10-20-2024 Emergency Department Summary [facility] Medical Records Department [address] [place] [address] Emergency Department Summary 10/20/24 MR#: [id number] Acct: [id number] Name: NICHOLAS POLLARD Rep #: [id number] : 2005 18 From: Sid Piña MD [...] similar symptoms: Yes Recent Illness/Hospitaliza tion: [facility] Medical History History of multiple miscarriages Home [...] wounds Ge (more content not included)... Normal [facility] Init OB < 14Wks US 025 Init OB < 14Wks [facility] Imaging Services [address] [place] [address] Init OB < 14Wks US MR#: [id number] Acct: [id number] Name: NICHOLAS POLLARD Rep #: [id number] : 2005 F 18 From: Jamaal Viera MD PCP: Care Physician,No Primary Status: REG ER Study: Init OB < 14Wks US Date of Exam: 10/20/24 Exam# [id number] Ordering Dr: Sid Piña MD PROCEDURE: INIT [...] Estimated due date of 04/26/2025 Reading Location: [place] [address] CC: Dr. 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: Signed Normal [facility] Ketones Test strip Ql (U)Ord ered By: Sid Piña on 10-20-2024 Ketones Ql (U) Negative Negative [facility] Microscopic analysis of urin e for red blood cells (RBC)Ordered By: Sid Piña on 10-20-2024 Microscopic analysis of urine for red blood cells (RBC) 0 SEEN /hpf 0-5 [facility] Mucus LM Ql (Urine sed)Order ed By: Sid Piña on 10-20-2024 Mucus Ql (Urine sed) 0 SEEN /hpf [facility] Nitrite Test strip Ql (U)Ord ered By: Sid Piña on 10-20-2024 Nitrite Ql (U) Negative Negative [facility] Protein Test strip Ql (U)Ord ered By: Sid Piña on 10-20-2024 Protein Ql (U) Negative Negative [facility] Serum human chorionic gonado tropin detection for pregnancyOrdered By: Sid Piña on 10-20-2024 HCG ( test) [place]l [address] mIU/mL High <9 [facility] Comment on above: Gestational Age0.2-1 Week: 5-50 mIU/mL1-2 Weeks: 50-500 mIU/mL2-3 Weeks: 100-5000 mIU/mL3-4 Weeks: 500-10,000 mIU/mL4-5 Weeks:1000-50,000 mIU/mL5-6 Weeks: 10,000-100,000 mIU/mL6-8 Weeks: 15,000-200,000 mIU/mL2-3 Months:10,000-100,000 mIU/mL Squamous epithelial cells de tection in urine sediment by light microscopyOrdered By: Sid Piña on 10-20-2024 Epithelial cells.squamous LM Ql (Urine sed) 5-10 SEEN /hpf 5-10 [facility] Transitional cells detection in urine sediment by light microscopyOrdered By: Sid Piña on 10-20-2024 Transitional cells LM Ql (Urine sed) 0-5 SEEN /hpf 0-5 [facility] Urinalysis, Completeon 10-20 BACTERIA 3+ /hpf Normal None Seen [facility] Comment on above: Order Comment: CLEAN CATCH Performed By: #### L 400.0001 #### [facility] [address] [place], [place], [address] EPI,SQUAMOUS 5-10 SEEN Normal 5-10 [facility] Comment on above: Order Comment: CLEAN CATCH Performed By: #### L 400.0001 #### [facility] [address] [place], [place], [id number] EPI,TRANSITION 0-5 SEEN Normal 0-5 [facility] Comment on above: Order Comment: CLEAN CATCH Performed By: #### L 400.0001 #### [facility] [address] [place], [address] WBC 5-10 SEEN Normal 0-5 [facility] Comment on above: Order Comment: CLEAN CATCH Performed By: #### L 400.0001 #### [facility] [address] [place], [place], [address] Mucus Ql (Urine sed) [address] [facility] Comment on above: Order Comment: CLEAN CATCH Performed By: #### L 400.0001 #### [facility] [address] [place], [place], [address] RBC 0 SEEN Normal 0-5 [facility] Comment on above: Order Comment: CLEAN CATCH Performed By: #### L 400.0001 #### [facility] [address] [place], [place], [address] Urine clarityOrdered By: Mj Piña on 10-20-2024 Clarity (U) Clear Clear [facility] Urine color determinationOrd ered By: Sid Piña on 10-20-2024 Color (U) Straw Yellow [facility] Urine glucose detectionOrder ed By: Sid Pñia on 10-20-2024 Glucose Ql (U) Normal mg/dl Normal [facility] Urine leukocyte esterase det ection by dipstickOrdered By: Sid Piña on 10-20-2024 Leukocyte esterase Test strip Ql (U) 500 /ul High Negative [facility] Urine pHOrdered By: Sid mendosa on 10-20-2024 pH (U) 7.0 [pH] 5.0 - 8.0 [facility] Urine sediment bacteria coun t by microscopy (number/high power field)Ordered By: Sid Piña on 10-20-2024 Bacteria LM.HPF (Urine sed) [#/Area] 3 /[HPF] None Seen [facility] Urine specific gravity measu rementOrdered By: Sid Piña on 10-20-2024 Specific gravity (U) [Rel density] 1.010 1.002-1.030 [facility] Urine urobilinogen measureme ntOrdered By: Sid Piña on 10-20-2024 Urobilinogen Ql (U) Normal mg/dl Normal [facility] White blood cell countOrdere d By: Sid Piña on 10-20-2024 White blood cell count 5-10 SEEN /hpf 0-5 [facility] hCG Titer Quant., Serumon HCG QUANT. 87153 mIU/mL High <9 non-preg [facility] Comment on above: Result Comment: Gest ational Age 0.2-1 Week: 5-50 mIU/mL 1-2 Weeks: 50-500 mIU/mL 2-3 Weeks: 100-5000 mIU/mL 3-4 Weeks: 500-10,000 mIU/mL 4-5 Weeks:1000-50,000 mIU/mL 5-6 Weeks: 10,000-100,000 mIU/mL 6-8 Weeks: 15,000-200,000 mIU/mL 2-3 Months:10,000-100,000 mIU/mL Performed By: #### B 882-1, Rosas(D) IG #### [facility] [address] [facility], [address] Urine Cultureon 09-08-2024 URC Below infection level. Streptococcus agalactiae (B) Amo Count 1000-10,000 Mixed Gram Positive Organisms Mixed Gram Positive Organisms MIXC Mixed contaminants. Submit a new specimen if indicated. Streptococcus agalactiae (B): REACTION Ampicillin Islt KARSON <=0.25 cefTRIAXone Islt KARSON <=0.12 S Clindamycin.induced Susc Islt Linezolid Islt KARSON <=2 S Vancomycin Islt KARSON 0.5 S Normal [facility] Comment on above: Performed By: #### L 501.2450, L500.4050, L100.0100 #### [facility] [address] [facility], [address] [id number] 09-05-2024 ABO and Rh group Nom (Bld) Blood group A Rh(D) negative Normal [facility] Comment on above: Performed By: #### B 882-1, Rosas(D) IG #### [facility] [address] [place], [address] Bilirubin Test strip Ql (U)O rdered By: Jesús Shi on 09-05-2024 Bilirubin Ql (U) Negative Negative [facility] Chest PA and Lateralon 09-05 Chest PA and Lateral [facility] Imaging Services [address] [place] [address] Chest PA and Lateral MR#: [id number] Acct: [id number] Name: NICHOLAS POLLARD Rep #: [id number] : 2005 F 18 From: Stevo Lao MD PCP: Care Physician,No Primary Status: REG ER Study: Chest PA and Lateral Date of Exam: 09/05/24 Exam# [id number] Ordering Dr: Jesús Shi DO PROCEDURE: CHEST PA AND LATERAL 09/05/2024 REASON FOR EXAM: INJURY TECHNIQUE: Frontal and lateral views of the chest. COMPARISON: None. FINDINGS: Hardware: None. Heart: The heart size is normal. Mediastinum: The mediastinal contour is unremarkable. Lungs: The lungs are clear. Bones: The bones are unremarkable. RAD/Chest PA and Lateral IMPRESSION: NO ACUTE FINDINGS. Reading Location: [place] [address] CC: Dr. 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 PFSH PFSH Medical History History of multiple [...] culture sent. Blood type a negative. Quant 85245. Covered with Keflex. Chest x-ray negative. With [...] clinician: OB This note was generated with [employer] dictation software. It may contain incorrect words, spelling, and punctuation that were not noted in checking the note before signing. Lab Data Attestation: I reviewed the patient's lab results. Labs: Laboratory Results - last 24 hr 09/05/24 09/05/24 20:01 20:41 HCG, Qu (more content not included)... Normal [facility] Ketones Test strip Ql (U)Ord ered By: Jesús Shi on 09-05-2024 Ketones Ql (U) Negative Negative [facility] Microscopic analysis of urin e for red blood cells (RBC)Ordered By: Jesús Shi on 09-05-2024 Microscopic analysis of urine for red blood cells (RBC) 0 SEEN /hpf 0-5 [facility] Mucus LM Ql (Urine sed)Order ed By: Jesús Shi on 09-05-2024 Mucus Ql (Urine sed) RARE /hpf [facility] Nitrite Test strip Ql (U)Ord ered By: Jesús Shi on 09-05-2024 Nitrite Ql (U) Negative Negative [facility] Protein Test strip Ql (U)Ord ered By: Jesús Shi on 09-05-2024 Protein Ql (U) 15 mg/dl High Negative [facility] Serum human chorionic gonado tropin detection for pregnancyOrdered By: Jesús Shi on 09-05-2024 HCG ( test) Ql [address] mIU/mL High <9 [facility] Comment on above: Gestational Age0.2-1 Week: 5-50 mIU/mL1-2 Weeks: 50-500 mIU/mL2-3 Weeks: 100-5000 mIU/mL3-4 Weeks: 500-10,000 mIU/mL4-5 Weeks:1000-50,000 mIU/mL5-6 Weeks: 10,000-100,000 mIU/mL6-8 Weeks: 15,000-200,000 mIU/mL2-3 Months:10,000-100,000 mIU/mL Squamous epithelial cells de tection in urine sediment by light microscopyOrdered By: Jesús Shi on 09-05-2024 Epithelial cells.squamous LM Ql (Urine sed) 0-5 SEEN /hpf - [facility] Urinalysis, Completeon 09-05 BACTERIA 1+ /hpf Normal None Seen [facility] Comment on above: Order Comment: CLEAN CATCH Performed By: #### L 400.0001 #### [facility] [address] [place], [address] EPI,SQUAMOUS 0-5 SEEN Normal -10 [facility] Comment on above: Order Comment: CLEAN CATCH Performed By: #### L 400.0001 #### [facility] [address] [place], [address] Mucus Ql (Urine sed) RARE Normal [facility] Comment on above: Order Comment: CLEAN CATCH Performed By: #### L 400.0001 #### [facility] [address] [place], [address] WBC 0-5 SEEN Normal 0-5 [facility] Comment on above: Order Comment: CLEAN CATCH Performed By: #### L 400.0001 #### [facility] [address] [place], [address] RBC 0 SEEN Normal 0-5 [facility] Comment on above: Order Comment: CLEAN CATCH Performed By: #### L 400.0001 #### [facility] [place] [address] [address] [place], [address] Urine clarityOrdered By: Abdias Shi on 09-05-2024 Clarity (U) Clear Clear [facility] Urine color determinationOrd ered By: Jesús Shi on 09-05-2024 Color (U) Yellow Yellow [facility] Urine cultureOrdered By: Abdias Shi on 09-05-2024 Bacteria identified Cx Nom (U) Streptococcus agalactiae (B) Abnormal [facility] Bacteria identified Cx Nom (U) Positive Abnormal [facility] Urine glucose detectionOrder ed By: Jesús Shi on 09-05-2024 Glucose Ql (U) Normal mg/dl Normal [facility] Urine leukocyte esterase det ection by dipstickOrdered By: Jesús Shi on 09-05-2024 Leukocyte esterase Test strip Ql (U) 25 /ul High Negative [facility] Urine pHOrdered By: Jesús Shi on 09-05-2024 pH (U) 6.5 [pH] 5.0 - 8.0 [facility] Urine sediment bacteria coun t by microscopy (number/high power field)Ordered By: Jesús Shi on 09-05-2024 Bacteria LM.HPF (Urine sed) [#/Area] 1 /[HPF] None Seen [facility] Urine specific gravity measu rementOrdered By: Jesús Shi on 09-05-2024 Specific gravity (U) [Rel density] 1.015 1.002-1.030 [facility] Urine urobilinogen measureme ntOrdered By: Jesús Shi on 09-05-2024 Urobilinogen Ql (U) Normal mg/dl Normal [facility] White blood cell countOrdere d By: Jesús Shi on 09-05-2024 White blood cell count 0-5 SEEN /hpf 0-5 [facility] hCG Titer Quant., Serumon HCG QUANT. 33051 mIU/mL High <9 non-preg [facility] Comment on above: Result Comment: Gest ational Age 0.2-1 Week: 5-50 mIU/mL 1-2 Weeks: 50-500 mIU/mL 2-3 Weeks: 100-5000 mIU/mL 3-4 Weeks: 500-10,000 mIU/mL 4-5 Weeks:1000-50,000 mIU/mL 5-6 Weeks: 10,000-100,000 mIU/mL 6-8 Weeks: 15,000-200,000 mIU/mL 2-3 Months:10,000-100,000 mIU/mL Performed By: #### B 882-1, Rosas(Adam) IG #### [facility] [address] [place], [address] CNOVon 08-27-2024 CNOV Office Visit (UCWSTR) ---- NICHOLAS POLLARD ([id number]) 5 F Date Time Provider Department 08/27/24 6:00 PM [facility] During your visit today, we recorded the following information about you: Charla Long APRN.PASTRY DECORATOR 08/27/2024 6:06 PM Signed Patient came in with complaints of chest discomfort and shortness of breath. Patient says it hurts to breathe. Patient says when she is walking she is extremely short of breath. 3 days ago [place] [facility] [place] [facility] [place] the water was high and she [...] Status:Closed by CHARLA LONG on 08/27/24 Normal [facility] RHOIG EVALUATIONon 5 ABO and Rh group Nom (Bld) Blood group A Rh(D) negative [facility] Blood group antibody screen Ql Negative Negative [facility] RhIG, Antepartemon 5 Type AND Rh Negative Normal [facility] ([place]) Comment on above: Performed By: #### A NTR #### [facility] [address], [place] [address] Sj Connors MD, PhD [phone] Surg Path Requeston 05-30-19 25 Surg Path Request See Surg Path Review for report. Normal [facility] ([place]) Comment on above: Performed By: #### S URGREQ #### [facility] [address], [place] [address] Sj Connors MD, PhD [phone] Surgical/Pathologyon 025 Surgical/Pathology AP results --- Final Report of Pathology Examination --- Sample ID: [id number] Clinical Data: See H AND P Preoperative [...] discrete or placental tissue is grossly identified. [employer] sections are submitted cassette A, tissue from the plastic suction canister; B, tissue from the collection sac. SS (FARNAZ) Microscopic Description Sections consist of abundant villi with hydropic degeneration and rare small cisterns. There is a polarized trophoblast proliferation. There is abundant decidua and focal gestational endometrium. 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 CPT CODES: 73288 _ Normal [facility] ([place]) Comment on above: Performed By: #### S URG #### [facility] [address] [place] [address] Sj Connors MD, PhD [phone] US OB DATING ABDOMINAL < 14W [facility] 05-11-2024 US OB DATING ABDOMINAL < 14WEEKS [...] Yolk sac: None visualized pole: None visualized Niles rump length: Not applicable heart rate: Not [...] be seen with pelvic congestion syndrome. Normal [facility] ([place] US OB TRANSVAGINAL/DATINGon 05-11-2024 US OB TRANSVAGINAL/DATING [...] Yolk sac: None visualized pole: None visualized Niles rump length: Not applicable heart rate: Not [...] be seen with pelvic congestion syndrome. Normal [facility] ([place]) HCG Quantitativeon 5 HCG Quantitative 4974 mIU/mL High <5 [facility] ([place]) Comment on above: Order Comment: X 2; [...] marker. Performed By: #### H CGQT #### [facility] [address] [place] [address] Sj Connors MD, PhD [phone] ABO/RH(D) TYPINGon 4 ABO and Rh group Nom (Bld) Blood group A Rh(D) negative [facility] ANTIBODY SCREENon 04-17-2024 Blood group antibody screen Ql Negative Negative [facility] HCG ( test) Qlon HCG.beta subunit Qn 2589 m[IU]/mL High [facility] Comment on above: According to the lit erature, hCG results greater than or equal to 25 mIU/mL are considered positive. gestational age ranges 1-10 weeks: 45-256,740 mIU/mL 11-15 weeks: 11,556-265,380 mIU/mL 16-22 weeks: 7,481-111,954 mIU/mL 23-40 weeks: 1,531-101,566 mIU/mL This test has not been validated for monitoring as a tumor marker. Interpretation and review of laboratory results Abnormal [facility] LT X 2; Draw 48hrs apart. [facility] - [address] [place] [address] HCG Quantitativeon 4 HCG Quantitative 2589 mIU/mL High <5 [facility] ([place]) Comment on above: Order Comment: X 2; Draw 48hrs apart. Result Comment: Acco rding to the literature, hCG results greater than or equal to 25 mIU/mL are considered positive. gestational age ranges 1-10 weeks: 45-256,740 mIU/mL 11-15 weeks: 11,556-265,380 mIU/mL 16-22 weeks: 7,481-111,954 mIU/mL 23-40 weeks: 1,531-101,566 mIU/mL This test has not been validated for monitoring as a tumor marker. Performed By: #### P JOE, HCGQT, TYPERH, ABSC #### [facility] [address], [place] [address] Sj Connors MD, PhD [phone] No Panel Informationon 04-17 [facility] PROGESTERONEon 04-17-2024 Progesterone [Mass/Vol] 10.8 ng/mL [facility] Comment on above: Unable to flag ab normal results. See below for reference ranges. Female: Ovulatory Cycle Follicular: 0.14-2.03 ng/mL Periovulatory: 0.40-4.47 ng/mL Mid Luteal: 5.22-22.7 ng/mL Luteal: 1.42-16.6 ng/mL Post Menopausal: 0.15-1.04 ng/mL : 1st Trimester (4-12 weeks): 6.57-40.3 ng/mL 2nd Trimester (13-24 weeks): 9.66-62.3 ng/mL 3rd Trimester (25-36 weeks): 24.5-334 ng/mL Normal Male: 0.21-1.54 ng/mL Progesterone 10.8 ng/mL Normal [facility] ([place]) Comment on above: Result Comment: U nable to flag abnormal results. See below for reference ranges. Female: Ovulatory Cycle Follicular: 0.14-2.03 ng/mL Periovulatory: 0.40-4.47 ng/mL Mid Luteal: 5.22-22.7 ng/mL Luteal: 1.42-16.6 ng/mL Post Menopausal: 0.15-1.04 ng/mL : 1st Trimester (4-12 weeks): 6.57-40.3 ng/mL 2nd Trimester (13-24 weeks): 9.66-62.3 ng/mL 3rd Trimester (25-36 weeks): 24.5-334 ng/mL Normal Male: 0.21-1.54 ng/mL Performed By: #### P JOE, HCGQT, TYPERH, ABSC #### [facility] [address], [place] [address] Sj Connors MD, PhD [phone] Type AND Rhon 04-17-2024 Type AND Rh Negative Normal [facility] ([place]) Comment on above: Performed By: #### P JOE, HCGQT, TYPERH, ABSC #### [facility] [address], [place] [address] Sj Connors MD, PhD [phone] BASIC METABOLIC PANELon 04-2 Anion gap [Moles/Vol] 12 mmol/L 9 - 20 mmol/L [facility] Calcium [Mass/Vol] 9.5 mg/dL 8.4 - 10. 2 mg/dL [facility] Chloride [Moles/Vol] 108 mmol/L High 98 - 10 7 mmol/L [facility] CO2 [Moles/Vol] 26 mmol/L 22 - 30 mmol/L [facility] Creatinine [Mass/Vol] 0.90 mg/dL 0.52 - 1.04 mg/dL [facility] Glucose [Mass/Vol] 118 mg/dL High 74 - 106 mg/dL [facility] Interpretation and review of laboratory results Abnormal [facility] Potassium [Moles/Vol] 3.7 mmol/L 3.5 - 5.1 mmol/L [facility] Sodium [Moles/Vol] 142 mmol/L 137 - 145 mmol/L [facility] Urea nitrogen [Mass/Vol] 12 mg/dL 7 - 18 mg/d L [facility] Urea/Creatinine [Mass ratio] 13.3 Ratio [facility] CBC, EDIF, PLATELETon 2023 Basophils (Bld) [#/Vol] 0.0 10*3/uL 0.0 - 0.1 10^3/uL [facility] Basophils/100 WBC (Bld) 0.5 % 0.0 - 1.0 % [facility] Eosinophils (Bld) [#/Vol] 0.1 10*3/uL 0. 0 - 0.4 10^3/uL [facility] Eosinophils/100 WBC (Bld) 0.9 % 0.5 - 7.2 % [facility] Erythrocyte distribution width (RBC) [Ratio] 12.1 % 11.5 - 14.7 % [facility] Hematocrit (Bld) [Volume fraction] 41.4 % 32.1 - 52.0 % [facility] Hemoglobin (Bld) [Mass/Vol] 13.9 g/dL 11.3 - 18.0 g/dL [facility] Immature granulocytes (Bld) [#/Vol] 0.01 10*3/uL 0.00 - 0.08 10^3/uL [facility] Immature granulocytes/100 WBC (Bld) 0.10 % 0.00 - 0.80 % [facility] Lymphocytes (Bld) [#/Vol] 2.1 10*3/uL 0. 4 - 3.9 10^3/uL [facility] Lymphocytes/100 WBC (Bld) 26.8 % 8.0 - 52.8 % [facility] MCH (RBC) [Entitic mass] 29.3 pg 25. 0 - 35.0 pg [facility] MCHC (RBC) [Mass/Vol] 33.6 % 31.0 - 37.0 % [facility] MCV (RBC) [Entitic vol] 87.2 fL 78.0 - 102.0 fL [facility] Monocytes (Bld) [#/Vol] 0.4 10*3/uL 0.2 - 0.9 10^3/uL [facility] Monocytes/100 WBC (Bld) 4.8 % 2.7 - 12.5 % [facility] Neutrophils (Bld) [#/Vol] 5.4 10*3/uL 1. 9 - 8.6 10^3/uL [facility] Neutrophils/100 WBC (Bld) 66.9 % 39.6 - 80. 0 % [facility] Platelet mean volume (Bld) [Entitic vol] 9.8 fL 6.3 - 12.4 fL [facility] Platelets (Bld) [#/Vol] 297 10*3/uL 150 - 450 10^3/uL [facility] RBC (Bld) [#/Vol] 4.75 10*6/uL 3.79 - 6.1 0 10^6/uL [facility] WBC (Bld) [#/Vol] 8.0 10*3/uL 3.9 - 13.0 10^3/uL [facility] CT Cervical spine WO octaviano ton 08-06-2023 IMPRESSION: No acute abnormality of [...] No acute abnormality of the cervical spine. [facility] Radiology Study observation (narrative) [facility] CT Cervical spine WO contras tOrdered By: Rory Hayes on 08-06-2023 [facility] Work Phone: CT Head WO contraston 2023 IMPRESSION: No [...] IMPRESSION: No acute findings in the head. [facility] Radiology Study observation (narrative) [facility] CT Head WO contrastOrdered B y: Duy Knight on 08-06-2023 [facility] Work Phone: HEPATIC FUNCTION PANELon Albumin [Mass/Vol] 4.9 g/dL 3.5 - 5.0 g/dL [facility] Albumin/Globulin [Mass ratio] 1.5 {ratio} Ratio [facility] ALP [Catalytic activity/Vol] 56 U/L 38 - 126 U/L [facility] ALT [Catalytic activity/Vol] 18 U/L 10 - 35 U/L [facility] AST [Catalytic activity/Vol] 28 U/L 14 - 44 U/L [facility] Bilirubin [Mass/Vol] 0.4 mg/dL 0.2 - 1 .3 mg/dL [facility] Bilirubin.conjugated [Mass/Vol] 0.2 mg/dL 0.0 - 0.4 mg/dL [facility] Bilirubin.indirect [Mass/Vol] 0.2 mg/dL 0.0 - 1.1 mg/dL [facility] Globulin (P) [Mass/Vol] 3.3 g/dL 2.3 - 3.5 g/dL [facility] Protein [Mass/Vol] 8.2 g/dL 6.3 - 8.2 g/dL [facility] No Panel Informationon 08-05 [facility] Portable XR Chest Viewson IMPRESSION: No [...] IMPRESSION: No acute findings in the chest. [facility] Radiology Study observation (narrative) [facility] ACETAMINOPHEN LEVELon 2021 Acetaminophen [Mass/Vol] ug/mL 10. 0 - 30.0 ug/mL [facility] Comment on above: Therapeutic: 10-30 u g/mL Possible Toxicity: 150-200 ug/mL Probable Toxicity: >200 ug/mL ALCOHOL (ETHANOL),BLOODon Ethanol [Mass/Vol] mg/dL <10 mg/dL [facility] Comment on above: Negative: <10 mg/dL Toxic: 50-100 mg/dL Depression of [employer]ENT [employer]ING[employer] EXAMINER: >100 mg/dL Fatalities Reported: >400 mg/dL The results of this assay are for medical purposes only and not valid for legal purposes. Specimens collected from patients near or immediately after may produce falsely elevated results. Confirmatory testing by gas chromatography may be performed at the at the physician's discretion. Please contact the laboratory to request this additional testing. [facility] BASIC METABOLIC PANELon 12-17 Anion gap [Moles/Vol] 15 mmol/L 9 - 20 mmol/L [facility] Calcium [Mass/Vol] 9.6 mg/dL 8.8 - 10. 7 mg/dL [facility] Chloride [Moles/Vol] 103 mmol/L 98 - 10 7 mmol/L [facility] CO2 [Moles/Vol] 25 mmol/L 22 - 30 mmol/L [facility] Creatinine [Mass/Vol] 0.80 mg/dL 0.60 - 1.10 mg/dL [facility] Glucose [Mass/Vol] 97 mg/dL 65 - 105 mg/dL [facility] Potassium [Moles/Vol] 4.4 mmol/L 3.6 - 5.0 mmol/L [facility] Sodium [Moles/Vol] 139 mmol/L 137 - 145 mmol/L [facility] Urea nitrogen [Mass/Vol] 13 mg/dL 7 - 20 mg/d L [facility] Urea/Creatinine [Mass ratio] 16.3 Ratio [facility] CBC, EDIF, PLATELETon 2021 Basophils (Bld) [#/Vol] 0.0 10*3/uL [facility] Basophils/100 WBC (Bld) 0.4 % 0.0 - 0.6 % [facility] Eosinophils (Bld) [#/Vol] 0.1 10*3/uL Low [facility] Eosinophils/100 WBC (Bld) 1.9 % 0.0 - 6.0 % [facility] Erythrocyte distribution width (RBC) [Ratio] 12.3 % 12.3 - 14.6 % [facility] Hematocrit (Bld) [Volume fraction] 38.7 % 33.4 - 40.4 % [facility] Hemoglobin (Bld) [Mass/Vol] 13.5 g/dL High 10.8 - 13.3 g/dl [facility] Immature granulocytes (Bld) [#/Vol] 0.01 10*3/uL [facility] Immature granulocytes/100 WBC (Bld) 0.10 % 0.00 - 0.30 % [facility] Interpretation and review of laboratory results Abnormal [facility] Lymphocytes (Bld) [#/Vol] 2.9 10*3/uL [facility] Lymphocytes/100 WBC (Bld) 39.6 % 18.2 - 49. 8 % [facility] MCH (RBC) [Entitic mass] 29.7 pg 24. 8 - 30.2 pg [facility] MCHC (RBC) [Mass/Vol] 34.9 % High 31.0 - 34.1 % [facility] MCV (RBC) [Entitic vol] 85.1 fL 76.9 - 90.6 fl [facility] Monocytes (Bld) [#/Vol] 0.3 10*3/uL [facility] Monocytes/100 WBC (Bld) 4.3 % 4.1 - 10.9 % [facility] Neutrophils (Bld) [#/Vol] 4.0 10*3/uL [facility] Neutrophils/100 WBC (Bld) 53.7 % 39.0 - 73. 6 % [facility] Platelet mean volume (Bld) [Entitic vol] 10.0 fL 9.6 - 12.0 fl [facility] Platelets (Bld) [#/Vol] 275 10*3/uL [facility] RBC (Bld) [#/Vol] 4.55 10*6/uL [facility] WBC (Bld) [#/Vol] 7.4 10*3/uL [facility] HCG ( test) Ql (U)o n 12-31-2021 Beta HCG ( test) Ql (U) Negative [facility] HEPATIC FUNCTION PANELon Albumin [Mass/Vol] 4.8 g/dL 3.7 - 5.8 g/dL [facility] Albumin/Globulin [Mass ratio] 1.5 {ratio} Ratio [facility] ALP [Catalytic activity/Vol] 68 U/L 65 - 525 U/L [facility] ALT [Catalytic activity/Vol] 15 U/L 10 - 35 U/L [facility] AST [Catalytic activity/Vol] 25 U/L 10 - 30 U/L [facility] Bilirubin [Mass/Vol] 0.4 mg/dL 0.1 - 1 .0 mg/dL [facility] Bilirubin.conjugated [Mass/Vol] 0.2 mg/dL 0.0 - 0.6 mg/dL [facility] Bilirubin.indirect [Mass/Vol] 0.2 mg/dL 0.1 - 1.0 mg/dL [facility] Globulin (P) [Mass/Vol] 3.2 g/dL 2.3 - 3.5 g/dL [facility] Protein [Mass/Vol] 8.0 g/dL 6.3 - 8.6 g/dL [facility] No Panel Informationon 12-31 [facility] SALICYLATE LEVELon 2 Salicylates [Mass/Vol] mg/dL <2.0 mg/dL [facility] Comment on above: Negative: <2 mg/dL Therapeutic: <20 mg/dL Toxic: >30 mg/dL Leth[place]: >60 mg/dL TSH W/FT4 REFLEXon 2 TSH Qn 1.11 m[IU]/L [facility] URINALYSIS REFLEX TO CULTURE on 12-31-2021 Bacteria LM Ql (Urine sed) 2+ Abnormal None [facility] Bilirubin Ql (U) Negative Negative [facility] Clarity (U) SLCLOUDY Abnormal Clear [facility] Color (U) YELLOW Yellow [facility] Epithelial cells LM.HPF (Urine sed) [#/Area] 6-10 Abnormal [facility] Glucose Auto test strip Ql (U) Negative Negative [facility] Hemoglobin Auto test strip Ql (U) Negative Negative [facility] Interpretation and review of laboratory results Abnormal [facility] Ketones Auto test strip Ql (U) Negative Negative [facility] Leukocyte esterase Auto test strip Ql (U) 2+ Abnormal Negative [facility] Nitrite Auto test strip Ql (U) Negative Negative [facility] pH (U) 7.0 [pH] [facility] Protein Auto test strip Ql (U) Negative Negative [facility] RBC LM.HPF (Urine sed) [#/Vol] 0-2 [facility] Specific gravity (U) [Rel density] 1.020 [facility] Urobilinogen (U) [Mass/Vol] 0.2 mg/dL [facility] WBC LM.HPF (Urine sed) [#/Area] 21-30 Abnormal [facility] A Urine Culture has been ordered. For indwelling catheters, specimen collection is acceptable on catheter day 1 and [address] [facility] [address] [facility] DRUG SCREEN 10on 12-31 Amphetamines Screen method >500 ng/mL Ql (U) Negative Negative [facility] Barbiturates Screen method >200 ng/mL Ql (U) Negative Negative [facility] Benzodiazepines Ql (U) Negative Negative [facility] Benzoylecgonine Ql (U) Negative Negative [facility] Cannabinoids Screen method >50 ng/mL Ql (U) Negative Negative [facility] Methadone Ql (U) Negative Negative [facility] Opiates Screen (U) [Mass/Vol] Negative Negative [facility] Phencyclidine Screen method >25 ng/mL Ql (U) Negative Negative [facility] Cutoff Values for POSITIVE's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 06-30-2020 End: 06-30-2020 Office outpatient visit 15 minutes Irina Cuevas Work Phone: [facility] Comment on above: Current mild episode of major depressive 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; Hx of lead poisoning Start: 05-28-2019 End: 05-28-2019 Office outpatient visit 10 minutes Hesham Acuna Work Phone: [facility] [place] Comment on above: Atopic dermatitis, u nspecified type (Primary Dx) Start: 04-02-2019 End: 04-02-2019 Emergency department patient visit Ramana Rodrigues Work Phone: [facility] Start: 02-26-2019 End: 02-26-2019 Patient encounter procedure Alireza Aguilar Work Phone: [facility] Comment on above: Joint stiffness of e lbow, right (Primary Dx) Start: 02-22-2019 End: 02-22-2019 Patient encounter procedure Alireza A Broering Work Phone: [facility] Comment on above: Joint stiffness of e lbow, right (Primary Dx) Start: 02-22-2019 End: 02-22-2019 Letter encounter Sheri Villasenor [facility] [place] Start: 02-22-2019 End: 02-22-2019 Office outpatient new 45 minutes Daniel Dover Work Phone: [facility] [place] Comment on above: Excessive bleeding i n premenopausal period (Primary Dx) Start: 02-20-2019 End: 02-20-2019 Patient encounter procedure Alireza Aguilar Work Phone: [place] [employer] [facility] Comment on above: Joint stiffness of e lbow, right (Primary Dx) Start: 02-15-2019 End: 02-15-2019 Outside Orders Karmen Mendiola [facility] Comment on above: Sprain of right elbo w, initial encounter (Primary Dx) Sprain of right elbo w, initial encounter (Primary Dx); Joint stiffness of elbow, right Start: 01-24-2019 End: 01-24-2019 Subsequent hospital visit by physician Alireza [employer] Work Phone: [facility] [employer] [facility] Comment on above: Arrived Start: 01-19-2019 End: 01-19-2019 Ancillary Orders Alireza [employer] [employer] Phone: [facility] Comment on above: Right elbow pain Start: 01-18-2019 End: 01-18-2019 Ancillary Orders Alireza [employer] Phone: [facility] [employer] [facility] Start: 01-07-2019 End: 01-07-2019 Emergency department patient visit Jayesh Gamble Work Phone: [facility] Start: 12-13-2018 End: 12-13-2018 Documentation procedure Lisbet Byrd Work Phone: [employer] [facility] Start: 12-05-2018 End: 12-05-2018 Telephone encounter Patience Hern[facility]dez [facility] [place] Comment on above: Menstrual Problem Start: 07-07-2018 End: 07-07-2018 Telephone encounter Cheyenne Miller [facility] Comment on above: ED Follow-up Start: 07-05-2018 End: 07-05-2018 Emergency department patient visit Gregoria Chen Work Phone: [facility] Start: 07-05-2018 End: 07-05-2018 Patient encounter procedure Lisbet Byrd Work Phone: [facility] Comment on above: Closed dislocation o f right patella, initial encounter (Primary Dx); Stiffness of right knee; Weakness; Abnormality of gait; Right knee pain, unspecified chronicity Start: 06-29-2018 End: 06-29-2018 Patient encounter procedure Lisbet Byrd [employer] Phone: [employer] Comment on above: Closed dislocation o f right patella, initial encounter (Primary Dx); Stiffness of right knee; Weakness; Abnormality of gait; Right knee pain, unspecified chronicity Start: 06-23-2018 End: 06-23-2018 Patient encounter procedure Lisbet Byrd [employer] Phone: [employer] Comment on above: Closed dislocation o f right patella, initial encounter (Primary Dx); Stiffness of right knee; Weakness; Abnormality of gait; Right knee pain, unspecified chronicity Start: 06-20-2018 End: 06-20-2018 Patient encounter procedure Alireza [employer] Phone: [employer] Comment on above: Closed dislocation o f right patella, initial encounter (Primary Dx); Stiffness of right knee; Weakness; Abnormality of gait; Right knee pain, unspecified chronicity Start: 06-15-2018 End: 06-15-2018 Patient encounter procedure Alireza [employer] Phone: [employer] Comment on above: Closed dislocation o f right patella, initial encounter (Primary Dx); Stiffness of right knee; Weakness; Abnormality of gait; Right knee pain, unspecified chronicity Start: 06-12-2018 End: 06-12-2018 Patient encounter procedure Lisbet Byrd [employer] Phone: [employer] Comment on above: Closed dislocation o f right patella, initial encounter (Primary Dx); Stiffness of right knee; Weakness; Abnormality of gait; Right knee pain, unspecified chronicity Start: 06-09-2018 End: 06-09-2018 Patient encounter procedure Alireza [employer] Phone: [employer] Comment on above: Closed dislocation o f right patella, initial encounter (Primary Dx); Stiffness of right knee; Weakness; Abnormality of gait; Right knee pain, unspecified chronicity Start: 06-07-2018 End: 06-07-2018 Patient encounter procedure Lisbet M Carson Work Phone: [facility] Comment on above: Closed dislocation o f right patella, initial encounter (Primary Dx); Stiffness of right knee; Weakness; Abnormality of gait; Right knee pain, unspecified chronicity Start: 06-02-2018 End: 06-02-2018 Patient encounter procedure Alireza Flora [employer] Phone: [facility] Comment on above: Closed dislocation o f right patella, initial encounter (Primary Dx); Stiffness of right knee; Weakness; Abnormality of gait Start: 05-26-2018 End: 05-26-2018 Patient encounter procedure Alireza Flora [employer] Phone: [facility] Comment on above: Closed dislocation o f right patella, initial encounter (Primary Dx); Right knee pain, unspecified chronicity; Stiffness of right knee; Weakness; Abnormality of gait Right knee pain, uns pecified chronicity (Primary Dx); Left knee pain, unspecified chronicity Start: 05-22-2018 End: 05-22-2018 Telephone encounter Sera Lilia [facility] Comment on above: Insurance Start: 05-19-2018 End: 05-19-2018 Telephone encounter [facility] Comment on above: ED Follow-up Start: 05-18-2018 End: 05-18-2018 Emergency department patient visit Ramana Rodrigues Work Phone: [facility] Emergency Department Start: 05-18-2018 End: 05-18-2018 Patient encounter procedure Lisbet Rush Carson Work Phone: [facility] Comment on above: Closed dislocation o f right patella, initial encounter (Primary Dx); Right knee pain, unspecified chronicity; Stiffness of right knee; Weakness; Abnormality of gait Dislocation of right patella, initial encounter (Primary Dx) Start: 05-03-2018 End: 05-03-2018 Patient encounter procedure Alireza Flora [employer] Work Phone: [facility] [employer] [facility] Comment on above: Right knee pain, uns pecified chronicity Start: 04-28-2018 End: 04-28-2018 Patient encounter procedure Cheyenne Miller [facility] Comment on above: ED Follow-up Start: 04-27-2018 End: 04-27-2018 Emergency department patient visit Andres Rose Work Phone: [facility] Emergency Department Procedures Date Procedure Procedure Detail Performing Clinician Start: 10-29-2024 Dilation and curetta ge of uterus No Primary Care Physician Start: 10-29-2024 Transvaginal obstetr ic ultrasonography No Primary Care Physician Start: 10-25-2024 Urnls dip stick/tabl et reagent [...] y Care Physician Start: 05-30-2024 Antibody screen DANIEL DHILLON Comment on above: Performed By: #### A NTRHG #### [facility] [address], [place] [address] Sj Connors MD, PhD [phone] Start: 05-30-2024 Blood typing serologic abo Daniel Dover MD Work Phone: Start: 04-17-2024 Antibody screen DANIEL DHILLON Comment on above: Performed By: #### P JOE, HCGQT, TYPERH, ABSC #### [facility] [address], [place] [address] Sj Connors MD, PhD [phone] Start: 08-06-2023 Radiologic exam ches t single view Marilyn Camilo PA-C Work Phone: Start: 08-06-2023 Ct head/brain w/o co ntrast material Marilyn Camilo PA-C Work Phone: Start: 08-06-2023 Ct cervical spine w/ o contrast material Marilyn FAJARDO-C Work Phone: Start: 08-06-2023 Basic metabolic pane l calcium total Marilyn Camilo PA-C Work Phone: Start: 08-06-2023 Complete blood count with white cell differential, automated Marilyn Camilo PA-C Work Phone: Start: 12-31-2021 Assay of acetaminophen Gregoria Chen DO Work Phone: Start: 12-31-2021 Assay of ethanol Gregoria Chen DO Work Phone: Start: 12-31-2021 Assay of salicylate Car yuval Chen DO Work Phone: Start: 12-31-2021 End: 12-31-2021 [...] Phone: Start: 04-02-2019 Plain chest X-ray Ramana A Lilia Work Phone: Start: 01-24-2019 MRI of elbow Alireza A Bro ering Work Phone: Start: 01-07-2019 Radiography of elbow Ro ss L Tye Work Phone: Start: 07-05-2018 Mammography Gregoria cummins Work Phone: Start: 05-18-2018 End: 05-18-2018 X-ray of left knee Ramana A Dues Work Phone: Plan of Treatment Date Care Activity Detail Author Start: 2080 RSV VACCINE (1 - 1-dose 75+ series) RSV VACCINE (1 - 1-dose 75+ series) [facility] Start: 2065 RSV VACCINE (1 - 1-dose 60+ series) RSV VACCINE (1 - 1-dose 60+ series) [facility] Start: 12-21-2028 DTAP/TDAP/TD VACCINE (6 - Td or Tdap) DTAP/TDAP/TD VACCINE (6 - Td or Tdap) [facility] Start: 12-21-2028 Tetanus vaccination TETANUS [facility] Start: 12-21-2028 Urine microalbumin profile DTaP,Tdap,Td Vaccine (6 - Td or Tdap) Start: 12-17-2024 Influenza vaccination Start: 11-15-2024 End: 11-15-2025 PHOSPHATIDYSERINE ABS PHOSPHATIDYSERINE ABS Lab Routine Miscarriage Expected: 11/15/2024, Expires: 11/15/2025 [facility] Comment on above: Expected: 11/15/2024, Expires: Start: 10-29-2024 Ambulation without limitation [facility] Start: 10-29-2024 Medication education [facility] Start: 10-29-2024 Procedure discontinued [facility] Start: 10-29-2024 Taking patient vital signs [facility] Start: 10-29-2024 Vital signs measurements [facility] Start: 10-29-2024 [facility] Start: 10-29-2024 Medical regimen orders management [facility] Start: 10-29-2024 Patient discharge [facility] Start: 10-29-2024 Dilation and curettage of uterus Dilation and Curettage, Suction (Not Applicable) [facility] Start: 10-29-2024 Hospital admission, emergency, from emergency room, medical nature [facility] Start: 10-25-2024 [facility] Start: 10-25-2024 [facility] Start: 10-25-2024 Bacteria identified in Urine by Culture Urine Culture [facility] Start: 10-25-2024 Urine culture [facility] Start: 10-20-2024 End: 10-20-2024 [facility] Start: 10-20-2024 Administration of blood product [facility] Start: 10-20-2024 [facility] Start: 09-05-2024 End: 09-05-2024 [facility] Start: 09-05-2024 Bacteria identified in Urine by Culture Urine Culture [facility] Start: 05-30-2024 End: 05-30-2024 Admission to same day surgery center 05/30/2024 7:30 AM EST - 05/30/2024 8:15 AM EST Surgery [facility] [address] [place] [address] Daniel Dover MD [address] [place] [phone] (Scarlett Check) HYSTEROSCOPY W/ REMOVAL FB [facility] Comment on above: (Scarlett Check) HYSTEROSCOPY W/ REMOVAL FB Start: 05-30-2024 Subsequent hospital visit by physician 05/30/2024 7:30 AM EST Hospital Encounter [facility] [address] [place] [address] Daniel Dover MD [address] [place] [phone] Blighted ovum [facility] Comment on above: Blighted ovum Start: 05-30-2024 End: 05-30-2024 Hysteroscopy removal impacted foreign body ANGE OR Start: 05-23-2024 End: 05-23-2024 Admission to establishment 05/23/2024 8:00 AM EST Clinical Support Encounter [facility] Pre Admission [address] [place] [address] [facility] Pre [facility] Start: 05-09-2024 End: 05-09-2025 OB ultrasound panel US OB DATING ABDOMINAL < [id number] Imaging Routine Abnormal in first trimester Expected: 05/09/2024, Expires: 05/09/2025 [facility] Comment on above: Expected: 05/09/2024, Expires: Start: 12-18-2023 COVID-19 VACCINE ( season) COVID-19 VACCINE ( season) [facility] Start: 12-18-2023 Influenza vaccination [facility] Start: 11-28-2023 Anxiety Screening Anxiety Screening Start: 11-28-2023 Depression Screening Depression Screening Start: 11-28-2023 GC (Gonorrhea) Screening () GC (Gonorrhea) Screening () Start: 11-28-2023 Hepatitis C screening Hepatitis C Screening Start: 11-28-2023 HIV screening HIV Screening Start: 11-28-2023 Screening for Chlamydia trachomatis Chlamydia Screening () Start: 12-17-2022 COVID-19 VACCINE ( season) COVID-19 VACCINE () [facility] Start: 12-17-2021 Influenza vaccination [facility] Start: 2021 Meningococcal B Vaccine (1 of 2 - Standard) Meningococcal B Vaccine (1 of 2 - Standard) Start: 2021 Meningococcal conjugate vaccination [facility] Start: 2021 Meningococcal Conjugate Vaccine (2 - 2-dose series) Meningococcal Conjugate Vaccine (2 - 2-dose series) Start: 2021 Screening for Chlamydia trachomatis CHLAMYDIA SCREEN [facility] Start: 09-10-2021 End: 09-10-2021 Patient encounter procedure 09/10/2021 Office Visit Family Medicine Irina Cuevas, DO [address] [address] [facility] Start: 08-06-2021 End: 08-06-2021 Patient encounter procedure 08/06/2021 Office Visit Family Irina Soriano, DO [address] [address] [facility] Start: 05-18-2021 End: 05-18-2021 Patient encounter procedure 05/18/2021 Office Visit Family Irina Soriano, DO [address] [address] [facility] Start: 12-17-2020 Influenza vaccination [facility] Start: 2020 HIV screening HIV SCREENING DISCUSSION [facility] Start: 2020 HPV VACCINE (1 - 3-dose series) HPV VACCINE (1 - 3-dose series) [facility] Start: 2020 Vaccination for human papillomavirus HPV VACCINE ADOL (1 - 3-dose series) [facility] Start: 08-11-2020 End: 08-11-2020 Office Visit 08/11/2020 Office Visit Family Medicine Irian Cuevas DO [address] [address] [phone] [facility] Start: 12-18-2019 Influenza vaccination INFLUENZA VACCINE (#1) [facility] Start: 11-28-2019 Peds To Adult Transition Annual Assessment Peds To Adult Transition Annual Assessment Start: 03-16-2019 End: 03-16-2019 Rehab Services Visit [facility] Start: 03-13-2019 End: 03-13-2019 Rehab Services Visit 03/13/2019 Rehab Services Visit Occupational Therapy Alireza Aguilar MD [address] [id number] Rhina Sow, LEE [facility] Start: 03-08-2019 End: 03-08-2019 Rehab Services Visit 03/08/2019 Rehab Services Visit Occupational Alireza Flor MD [address] [address] [phone] Rhina Sow OTA [facility] Start: 03-06-2019 End: 03-06-2019 Rehab Services Visit 03/06/2019 Rehab Services Visit Occupational Alireza Flor MD [address] [id number] Giselle Lacy, OT [address] [place] [address] [phone] [facility] Start: 03-01-2019 End: 03-01-2019 Rehab Services Visit 03/01/2019 Rehab Services Visit Occupational Therapy Alireza Aguilar MD [address] [place] [address] Rhina Sow [facility] Start: 02-27-2019 End: 02-27-2019 Rehab Services Visit 02/27/2019 Rehab Services Visit Occupational Therapy Alireza Aguilar MD [address] [place] [address] Rhina Sow OTA [facility] Start: 02-26-2019 End: 02-26-2019 Rehab Services Visit 02/26/2019 Rehab Services Visit Occupational Alireza Flor MD [address] [place] [address] Rhina Sow [facility] Start: 02-22-2019 End: 02-22-[address] [facility] Start: 02-20-2019 End: 02-20-2019 Rehab Services Visit 02/20/2019 Rehab Services Visit Occupational Therapy Alireza Aguilar MD [address] [place] [address] Rhina Sow OTA [facility] Start: 01-24-2019 Hospital Encounter 01/24/2019 Hospital Encounter Magnetic Resonance Imaging Alireza Aguilar MD [address] [place] [address] [facility] Start: 01-19-2019 Procedure Pass 01/19/2019 Procedure Pass Magnetic Resonance Imaging [facility] Start: 12-17-2018 Influenza vaccination INFLUENZA VACCINE (#1) [facility] Start: 2018 HIV screening HIV SCREENING DISCUSSION [facility] Start: 07-12-2018 End: 07-12-2018 Rehab Services Visit 07/12/2018 Rehab Services Visit Physical Therapy Carson, Lisbet M, PT [address] [place] [facility] [place] [address] [phone] [facility] Start: 07-05-2018 End: 07-05-2018 Rehab Services Visit 07/05/2018 Rehab Services Visit Physical Therapy Lisbet Byrd, PT [address] [place] [facility] [place] [address] [phone] [facility] Start: 06-29-2018 End: 06-29-2018 Rehab Services Visit 06/29/2018 Rehab Services Visit Physical Therapy Carson Lisbet M, PT [address] [place] [facility] [place] [address] [phone] Alireza Aguilar MD [address] [place] [address] [facility] Start: 06-23-2018 End: 06-23-2018 Ambulatory 06/23/2018 Rehab Services Visit Physical Therapy Lisbet Byrd, PT [address] [place] [facility] [place] [address] [phone] [facility] Start: 06-20-2018 End: 06-20-2018 Ambulatory 06/20/2018 Rehab Services Visit Physical Therapy Alireza Aguilar MD [address] [place] [facility] [place] [address] [phone] Crystal Wagner, [employer] [address] [facility] [place] [address] [phone] [facility] Start: 06-15-2018 End: 06-15-2018 Ambulatory 06/15/2018 Rehab Services Visit Physical Therapy Alireza Aguilar MD [address] [place] [facility] [place] [address] [phone] Crystal Wagner, [employer] [address] [facility] [place] [address] [phone] [facility] Start: 06-12-2018 End: 06-12-2018 Ambulatory 06/12/2018 Rehab Services Visit Physical Therapy Lisbet Byrd, PT [address] [place] [facility] [place] [address] [phone] [facility] Start: 06-09-2018 End: 06-09-2018 Ambulatory 06/09/2018 Rehab Services Visit Physical Therapy Alireza Aguilar MD [address] [place] [facility] [place] [address] [phone] Crystal Wagner, [employer] [address] [facility] [place] [address] [phone] [facility] Start: 06-07-2018 End: 06-07-2018 Ambulatory 06/07/2018 Rehab Services Visit Physical Therapy Lisbet Byrd, PT [address] [place] [facility] [place] [address] [phone] [facility] Start: 06-02-2018 End: 06-02-2018 Ambulatory 06/02/2018 Rehab Services Visit Physical Therapy Alireza Aguilar MD [address] [place] [facility] [place] [address] [phone] Crystal Wagner, [facility] [address] [facility] [place] [address] [phone] [facility] Start: 05-30-2018 End: 05-30-2018 Ambulatory 05/30/2018 Rehab Services Visit Physical Therapy Lisbet Byrd, PT [address] [place] [facility] [place] [address] [phone] [facility] Start: 05-26-2018 End: 05-26-2018 Ambulatory 05/26/2018 Rehab Services Visit Physical Therapy Alireza Aguilar MD [address] [place] [facility] [place] [address] [phone] Crystal Wagner, [employer] [address] [facility] [place] [address] [phone] [facility] Start: 05-23-2018 End: 05-23-2018 Ambulatory 05/23/2018 Rehab Services Visit Physical Therapy Alireza Aguilar MD [address] [place] [address] [phone] Crystal Wagner PTA [address] [place] [address] [phone] [facility] Start: 05-10-2018 Ambulatory 05/10/2018 Hospital Encounter Magnetic Resonance Imaging Alireza Aguilar MD [address] [place] [address] [phone] [facility] MRI Start: 05-03-2018 Ambulatory 05/03/2018 Procedure Pass Administrative [facility] Start: 05-03-2018 End: 05-03-2019 MRI of knee MRI KNEE RIGHT WITHOUT CONTRAST Routine Right knee pain, unspecified chronicity Expected: 05/03/2018, Expires: 05/03/2019 [facility] Work Phone: Comment on above: Expected: 05/03/2018, Expires: 0 Start: 12-17-2017 Influenza vaccination INFLUENZA VACCINE (#1) [facility] Work Phone: Start: 2017 COVID-19 VACCINE (1) COVID-19 VACCINE (1) [facility] Start: 2017 Peds To Adult Transition Initial Discussion Peds To Adult Transition Initial Discussion Start: 2016 DTAP/TDAP/TD VACCINE (5 - Tdap) DTAP/TDAP/TD VACCINE (5 - Tdap) [facility] Start: 2016 Meningococcal conjugate vaccination [facility] Start: 2016 Vaccination for human papillomavirus [facility] Start: 2010 COVID-19 VACCINE (#1) COVID-19 VACCINE (#1) [facility] Start: 2010 COVID-19 VACCINE (1) COVID-19 VACCINE (1) [facility] Start: 2008 PREVENTATIVE HEALTH VISIT [facility] Start: 05-30-2006 COVID-19 VACCINE (#1) COVID-19 VACCINE (#1) [facility] Start: 2005 Hepatitis C screening HEPATITIS C VIRUS SCREENING [facility] Start: 2005 Screening for Chlamydia trachomatis GONORRHEA SCREEN [facility] End: 04-17-2025 Choriogonadotropin ( test) [Presence] in Serum or Plasma BETA HCG, QUANT, BLOOD Lab Routine Early stage of every 48 hours for 2 Occurrences starting 04/17/2024 until 04/17/2025, 1 completed [facility] Comment on above: every 48 hours for 2 Occurrences startin g 04/17/2024 until 04/17/2025, [address] [facility] Work Phone: Patient referral [facility] Work Phone: SURGICAL PATHOLOGY REQUEST SURGI MEME PATHOLOGY REQUEST Surg Path Routine Blighted ovum Release Upon Ordering for 1 Occurrences starting 05/30/2024 [facility] Comment on above: Release Upon Ordering for 1 Occurrences starting 05/30/2024 Urine culture [facility] Immunizations Immunization Date Immunization Notes Care Provider Fa cility 01-02-2010 diphtheria, tetanus toxoids and acellular pertussis vaccine [facility] Work Phone: 01-02-2010 haemophilus influenz ae type b vaccine, conjugate unspecified formulation [facility] Work Phone: 01-02-2010 hepatitis A vaccine, pediatric/adolescent dosage, 2 dose schedule [facility] Work Phone: 01-02-2010 measles, mumps and r ubella virus vaccine [facility] Work Phone: 01-02-2010 poliovirus vaccine, inactivated [facility] Work Phone: 01-02-2010 varicella virus vaccine [facility] Work Phone: 12-08-2006 hepatitis A vaccine, pediatric/adolescent dosage, 2 dose schedule [facility] Work Phone: 12-08-2006 measles, mumps and r ubella virus vaccine [facility] Work Phone: 12-08-2006 pneumococcal conjuga te vaccine, 13 valent [facility] Work Phone: 12-08-2006 varicella virus vaccine [facility] Work Phone: 06-02-2006 diphtheria, tetanus toxoids and acellular pertussis vaccine [facility] Work Phone: 06-02-2006 haemophilus influenz ae type b vaccine, conjugate unspecified formulation [facility] Work Phone: 06-02-2006 hepatitis B vaccine, pediatric or pediatric/adolescent dosage [facility] Work Phone: 06-02-2006 pneumococcal conjuga te vaccine, 13 valent [facility] Work Phone: 06-02-2006 poliovirus vaccine, inactivated [facility] Work Phone: 06-02-2006 rotavirus, live, pentavalent vaccine [facility] Work Phone: 03-31-2006 diphtheria, tetanus toxoids and acellular pertussis vaccine [facility] Work Phone: 03-31-2006 haemophilus influenz ae type b vaccine, conjugate unspecified formulation [facility] Work Phone: 03-31-2006 pneumococcal conjuga te vaccine, 13 valent [facility] Work Phone: 03-31-2006 poliovirus vaccine, inactivated [facility] Work Phone: 03-31-2006 rotavirus, live, pentavalent vaccine [facility] Work Phone: 02-02-2006 diphtheria, tetanus toxoids and acellular pertussis vaccine [facility] Work Phone: 02-02-2006 haemophilus influenz ae type b vaccine, conjugate unspecified formulation [facility] Work Phone: 02-02-2006 hepatitis B vaccine, pediatric or pediatric/adolescent dosage [facility] Work Phone: 02-02-2006 pneumococcal conjuga te vaccine, 13 valent [facility] Work Phone: 02-02-2006 poliovirus vaccine, inactivated [facility] Work Phone: 02-02-2006 rotavirus, live, pentavalent vaccine [facility] Work Phone: 2005 hepatitis B vaccine, pediatric or pediatric/adolescent dosage [facility] Payers Date Payer Category Payer Self-pay 2024 [facility] BLUE CARD PPO OOS [id number] 2023 Unknown [id number] 2016 Managed Care (unspecified) [employer] HMO PPO POS [id number] 2016 Unknown ANTHEM ANTHEM HM O PPO POS xxxxxxxxxxxx 2016-Present xxxxxxxxxxxx [id number] 2016 Unknown [id number] 2016 Unknown [id number]. [id number] 2016 Unknown [id number] 2005 Unknown [id number] 2.16.840.1.759951.3.579.2. 158 2005 Unknown [id number] 2.16.840.1.499027.3.579.2. 158 2005 Unknown [id number] 2.16.840.1.433088.3.579.2. 158 2005 Unknown [id number] 2.16.840.1.729589.3.579.2. 158 2005 Unknown [id number] 2.16.840.1.263557.3.579.2. 158 2005 Unknown [id number] 2.16.840.1.828672.3.579.2. 158 2005 Unknown [id number] 2.16.840.1.990150.3.579.2. 158 2005 Unknown [id number] 2.16.840.1.589004.3.579.2. 158 2005 Unknown [id number] 2.16.840.1.187897.3.579.2. 158 2005 Unknown [id number] 2.16.840.1.480958.3.579.2. 158 Unknown [id number] 2.16.840.1.236317.3.579.2. 462 Unknown [id number] 2.16.840.1.631855.3.579.2. 462 Unknown [id number] 2.16.840.1.891400.3.579.2. 462 Unknown [id number] 2.16.840.1.093740.3.579.2. 462 Unknown [id number] 2.16.840.1.960530.3.579.2. 462 Unknown [id number] 2.16.840.1.660535.3.579.2. 462 Unknown [id number] 2.16.840.1.944378.3.579.2. 462 Unknown [id number] 2.16.840.1.555396.3.579.2. 462 Social History Date Type Detail Facility Start: 04-27-2018 End: 05-22-2024 Tobacco smoking status NHIS Never smoker [facility] Start: 2005 Sex Assigned At Not on file O [facility] Work Phone: Start: 12-02-2016 Tobacco Comment Parents smoke outsid e [facility] Start: 02-22-2019 End: 11-15-2024 Alcohol intake Lifetime non-drinker (finding) [facility] Start: 02-22-2019 End: 05-29-2019 History SDOH Alcohol Frequency 1 [facility] Start: 02-22-2019 End: 04-02-2019 History SDOH IPV Fear 2 [facility] Start: 06-30-2020 End: 05-22-2024 Tobacco use and exposure Never used [facility] Start: 06-29-2021 End: 12-31-2021 Exposure to SARS-CoV-2 (event) Not sure [facility] Start: 07-04-2020 Tobacco Comment Parents smoke outsid e. [facility] Start: 07-04-2020 End: 05-22-2024 Tobacco Comment Parents smoke outside. [facility] History of tobacco use Passive smoker [facility] Start: 02-22-2019 End: 06-30-2020 History of Social function [facility] Start: 02-22-2019 End: 06-30-2020 Alcohol Use Disorder Identification Test - Consumption [AUDIT-C] [facility] Frequency of Alcohol Consumption Never [facility] Start: 11-29-2016 Gender identity Identifies as female gender (finding) [facility] Start: 04-16-2024 Sexual orientation Heterosexual (fin ding) [facility] Start: 01-16-2016 Sex Female (finding) [facility] Start: 09-05-2024 End: 10-25-2024 Tobacco smoking status NHIS Tobacco smoking consumption unknown [facility] Start: 2005 Sex Assigned At Female W [facility] NEGATED: Highlighted row Not [facility] Goals Date Patient Goal Desired Activity /State Personal health goal Comment on above: Formatting of this n ote might be different from the original. Short Term Goals to be achieved by 06/29/2018. 1. Initiate home program for lower extremity strengthening and stretching to improve pain control and muscle function with activities. GOAL [facility] 06/07/2018 2. Decrease pain level less than or equal to 4/10 with running for return to sports and daily activities. 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 1. Independent and compliant with home program to maintain physical therapy benefits and prevent re-injury. 2. Demonstrate improved functional strength - able to descend 7 inch step with good alignment and control without pain. 3. Decrease pain level less than or equal to 1/10 with running for return to sports, recreational activities for interaction with peers.GOAL [facility] 06/29/2018 4. Demonstrate functional improvement with improved LEFS of 80 or better. [facility] 06/07/2018 5. Ambulate household and community distances without increase pain level or gait deviations to allow return to prior level of activity.GOAL [facility] 06/23/2018 Personal health goal Comment on [...] IADL tasks. (01/20/2022: Met: 30 degrees. KMS) Intermediate Goal (to be completed by 02/22/2022): Patient [...] for return to sports and daily activities. Intermediate Goals to be achieved by 08/10/2018. 1. [...] and muscle function with activities. GOAL [facility] 06/07/2018 2. Decrease pain level less than or equal to 4/10 with running for return to sports and daily activities. [employer] Goals to be achieved by 08/10/2018. 1. [...] improved LEFS of 80 or better. [facility] 06/07/2018 5. Ambulate household and community distances without increase pain level or gait deviations to allow return to prior level of activity. Short Term Goals to be achieved by 06/29/2018. 1. Initiate home program for lower extremity strengthening and stretching to improve pain control and muscle function with activities. GOAL [facility] 06/07/2018 2. Decrease pain level less than or equal to 4/10 with running for return to sports and daily activities. GOAL [facility] 06/12/2018 Intermediate Goals to be achieved by 08/10/2018. 1. [...] improved LEFS of 80 or better. [facility] 06/07/2018 5. Ambulate household and community distances without increase pain level or gait deviations to allow return to prior level of activity. Short Term Goals to be achieved by 06/29/2018. 1. Initiate home program for lower extremity strengthening and stretching to improve pain control and muscle function with activities. GOAL [facility] 06/07/2018 2. Decrease pain level less than or equal to 4/10 with running for return to sports and daily activities. GOAL [facility] 06/12/2018 Intermediate Goals to be achieved by 08/10/2018. 1. [...] improved LEFS of 80 or better. [facility] 06/07/2018 5. Ambulate household and community distances without increase pain level or gait deviations to allow return to prior level of activity.GOAL [facility] 06/23/2018 Short Term Goals to be achieved by 06/29/2018. 1. Initiate home program for lower extremity strengthening and stretching to improve pain control and muscle function with activities. GOAL [facility] 06/07/2018 2. Decrease pain level less than or equal to 4/10 with running for return to sports and daily activities. GOAL [facility] 06/12/2018 Intermediate Goals to be achieved by 08/10/2018. 1. Independent and compliant with home program to maintain physical therapy benefits and prevent re-injury. 2. Demonstrate improved functional strength - able to descend 7 inch step with good alignment and control without pain. 3. Decrease pain level less than or equal to 1/10 with running for return to sports, recreational activities for interaction with peers.GOAL [facility] 06/29/2018 4. Demonstrate functional improvement with improved LEFS of 80 or better. [facility] 06/07/2018 5. Ambulate household and community distances without increase pain level or gait deviations to allow return to prior level of activity.GOAL [facility] 06/23/2018 Short Term Goals to be achieved by 06/29/2018. 1. Initiate home program for lower extremity strengthening and stretching to improve pain control and muscle function with activities. GOAL [facility] 06/07/2018 2. Decrease pain level less than or equal to 4/10 with running for return to sports and daily activities. Denies pain LL 06-09-18 Intermediate Goals to be achieved by 08/10/2018. 1. [...] improved LEFS of 80 or better. [facility] 06/07/2018 5. Ambulate household and community distances without increase pain level or gait deviations to allow return to prior level of activity. Formatting of this n ote might be different from the original. Short Term Goals to be achieved by 06/29/2018. 1. Initiate home program for lower extremity strengthening and stretching to improve pain control and muscle function with activities. GOAL [facility] 06/07/2018 2. Decrease pain level less than or equal to 4/10 with running for return to sports and daily activities. GOAL [facility] 06/12/2018 Intermediate Goals to be achieved by 08/10/2018. 1. Independent and compliant with home program to maintain physical therapy benefits and prevent re-injury. 2. Demonstrate improved functional strength - able to descend 7 inch step with good alignment and control without pain. 3. Decrease pain level less than or equal to 1/10 with running for return to sports, recreational activities for interaction with peers.GOAL [facility] 06/29/2018 4. Demonstrate functional improvement with improved LEFS of 80 or better. [facility] 06/07/2018 5. Ambulate household and community distances without increase pain level or gait deviations to allow return to prior level of activity.GOAL [facility] 06/23/2018 Comment on above: Short-term goals [...] KMS) Mental Status Date Assessment Result Facility 10-30-2024 Cognitive function Voice/Name [facility] Work Phone: 10-25-2024 Cognitive function Level Of Cons ciousness Awake;Alert;Appropriate [facility] Work Phone: Clinical Notes 08-10-2020 to 11-15-2024 Clover Baeza RN - 11/15/2024 2:30 PM EDTDaniel Dover MD - 11/15/2024 2:30 PM EDT Note Date & Type Note Facility 11-15-2024 History of Presen t illness Narrative Patient here to talk about control. Subjective: Pt just had a miscarriage 2 weeks ago. Heavy bleeding and had to go to ER to [facility] and need D+C again. When she felt pressure but no pain. Pt here for discussion of BC: 1- discussed BCP 2- LARC Nexplanon, Mirena 3- DEpo 4- Nuvaring After discussing pros and cons and she wants to do BCP. Review of Systems: General ROS: no fevers, no weight loss, no change in appetite Respiratory ROS: no cough, no shortness of breath Cardiovascular ROS: no chest pain, no palpitations, no LE edema Gastrointestinal ROS: no N/V, no diarrhea, no constipation Psychological ROS: no depression, no anxiety Objective: [employer] Director: N/A* Pt refused [employer] Director: no exam Physical Exam Blood pressure 100/60, weight 142 lb (64.4 kg). General appearance: alert, cooperative, appears stated age PORTFOLIO ARCHITECT: deferred Assessment / Plan: Nicholas Pollard is a 18 y.o. female with history of desire of BC Nichoals was seen today for contraception. Diagnoses and all orders for this visit: Miscarriage - PHOSPHATIDYSERINE ABS; Future control counseling Other orders - norethindrone-ethinyl estradiol (Necon , 28,) 1-35 MG-MCG tablet; Take 1 tablet by mouth daily. Daniel Dover MD documented in this encounter [facility] 10-30-2024 Consult note [facility] 10-30-2024 Consult note [facility] 10-30-2024 Discharge summary [facility] 10-30-2024 Discharge summary Note Date/Time October 29, 2024 10:46pm [facility] Medical Records Department [address] [place] [address] Emergency Department Summary 10/29/24 MR#: [id number] Acct: [id number] Name: NICHOLAS POLLARD Rep #:[id number] : 2005 18 From: Bo Martinez MD PCP: Care Physician,No Primary Status :[facility] Location: [place] [address] HPI HPI - Female History of Present Illness Chief Complaint: Vag Bld, Preg Narrative Narrative: 18-year-old female, G2, P0 at approximately 14 weeks gestation presents via EMS status post miscarriage today with continued vaginal bleeding and cramping. Sherelates history that her first sounds more like she had a blighted ovum. She needed a D&C which was performed at an outside facility back in May. Subsequently she became . She is currently approximately 14 weeks gestation. She states that on October 20, approximately 9 days ago she had vaginal spotting. She received RhoGAM, and was supposed to follow-up with Dr. Anderson tomorrow. However, while the vaginal bleeding/spotting had ceased, today she started having increased vaginal bleeding, then she states that this started at noon and at 2 PM she passed the fetus and the placenta. However, naila feels lightheaded and is having continued vaginal bleeding as well as pelviccramping. [facility] Medical History History of multiple miscarriages Home Medications ?Medication ?Instructions ?Recorded ?Last Taken ?Type NK 10/20/24 Unknown History cephalexin 500 mg capsule 500 mg PO Q12H 5 days #10 ca ps 10/25/24 Unknown Rx Allergy/AdvReac Type Severity Reaction Status Date / Time No Known Allergies Allergy Verified 10/29/24 18:57 Surgical History H/O dilation and curettage Social History housing: house Smoking Status: Never smoker ROS ROS ED ROS Narrative Review of systems positive for vaginal bleeding and cramping, passage of products of conception reportedly. Positive lightheadedness. Positive thirst. EXAM Physical Exam Narrative Exam Narrative: Afebrile. Vital signs noted. Nontoxic-appearing. Cardiovascular examination reveals regular rate and rhythm. Lungs are clear to auscultation bilaterally. Abdomen is soft with tenderness to palpation of the suprapubic area but no guarding or rebound. Positive bowel sounds. Neurological examination nonfocal,nonlateralizing. Const Vital Signs: 10/29/24 18:55 10/29/24 20:54 10/29/24 22:00 Temperature 98.6 F Temperature Source Oral Pulse Rate 80 65 84 Respiratory Rate 18 15 15 Blood Pressure 115/76 113/71 109/56 L Blood Pressure Mean 89 85 73 Blood Pressure Source Blood Pressure Position Blood Pressure Location Pulse Ox 98 99 99 Oxygen Delivery Method Room Air Room Air Room Air 10/29/24 22:34 10/29/24 22:44 Temperature 98.6 F 98.6 F Temperature Source Oral Pulse Rate 83 83 Respiratory Rate 18 18 Blood Pressure 109/56 L 109/56 L Blood Pressure Mean 73 Blood Pressure Source Monitor Blood Pressure Position Semi-Fowlers Blood Pressure Location Right Arm Pulse Ox 100 100 Oxygen Delivery Method Room Air Room Air MDM MDM MDM Narrative Medical decision making narrative: I reviewed her prior records and she is a negative blood type. She states the father of the fetus is a positive that is why she received RhoGAM when she had spotting. Concern is for retained products of conception versus complete miscarriage versus continued vaginal bleeding with miscarriage. I reviewed her laboratory work and she has elevated white count of 12.7 with hemoglobin 9.6. I do not feel she needs transfusion. Platelet count 230. Carbon dioxide slightly low at 18.8 which I think is nonspecific, creatinine lowat 0.61. Alk phos slightly elevated at 109 which I also think is nonspecific. Chaperoned pelvic examination/speculum examination did show small amount of blood in the vaginal vault with possible retained products blocking the os. I reviewed the radiology report of the ultrasound, which comments on interval spontaneous with retained products of conception. Patient had a near syncopal episode when she attempted to ambulate to the bathroom. She was given a bolus of IV fluids. I did review her prior medication list and prior ED visits. She was seen on the for the vaginal spotting that she had stated but she was also seen on the with concern of oligohydramnios and possibility of miscarriage. She has received RhoGAM on her visit on the fifth as she had stated. Given her heavy vaginal bleeding since noon, and retained products of conception, I discussed the patient with Dr. Kadi Rivera who will see the patient in the emergency department and most likely take her to the OR for suction dilation andcurettage. Patient is in stable condition. History & Record Review Discussion w/independent historian: Patient Lab Data Attestation: I reviewed the patient's lab results. Labs: Laboratory Results - last 24 hr 10/29/24 19:15 WBC 12.7 RBC 3.31 L Hgb 9.6 L Hct 26.7 L MCV 80.7 MCH 29.0 MCHC 36.0 RDW Std Deviation 37.1 RDW Coeff of [place] 12.8 Plt Count 230 MPV 10.2 Immature Gran % (Auto) 0.800 Neut % (Auto) 83.1 H Lymph % (Auto) 12.8 L [place] % (Auto) 2.9 L Eos % (Auto) 0.1 Baso % (Auto) 0.3 Absolute Neuts (auto) 10.5 H Absolute Lymphs (auto) 1.62 Nucleated RBC % 0 Sodium 135 Potassium 3.6 Chloride 104 Carbon Dioxide 18.8 L Anion Gap 12 BUN 6 Creatinine 0.61 L Est GFR (MDRD) Non-Af 133 BUN/Creatinine Ratio 10.0 Glucose 111 H Calcium 8.8 Total Bilirubin 0.33 AST 19 ALT 11 Alkaline Phosphatase 109 H Total Protein 6.5 Albumin 3.6 Globulin 3.0 Albumin/Globulin Ratio 1.2 Radiography Diagnostic Testing: Clinical Impression(s) from Imaging Studies Obstetrics Ultrasound 10/29/24 19:08 IMPRESSION: Interval spontaneous , suspected retained products of conception. Progress imaging as clinically determined. Reading Location: [place] [address] Discharge Plan Dx/Rx/DC Orders Clinical Impression: Retained products of conception with hemorrhage, Spontaneous miscarriage Disposition Disposition: [facility] What to do if you have Problems For any increased pain, shortness of breath, bleeding, nausea or vomiting, chestpain, or any unexpected problems, contact your Primary Care Provider. Call [facility] ([phone]) or report to the closest Emergency Room. Call 911 if necessary. 10/29/242245 <Electronically signed by Bo Martinez MD> Cosigner Signature (if applicable): CC: No Primary Care Physician ~ Signed [facility] Work Phone: 1(580) 916-547307-15-2025 Evaluation note* Diagnosis Onset Date Resolution Status Admit Date Incomplete acute October 29, 2024 10:45pm Retained products of concept ion with hemorrhage acute October 29, 2024 10:45pm Spontaneous miscarriage acute J jamari 2024 10:45pm [facility] Work Phone: 1(708) 999-749407-15-2025 Consult note Author Ralph Lewis [facility] Note Date/Time October 29, 2024 11:1 3pm [facility] Medical Records Department [address] [place] [address] Pre-Anesthesia Evaluation 10/29/242241 MR#: [id number] Acct: [id number] Name: NICHOLAS POLLARD Rep #:[id number] : 2005 18 From: Ralph Lewis MD PCP: Care Physician,No Primary Status :REG SDC Y Race: C Location: [facility] ASA Classification* ASA Classification ASA Classification: 2 and E Assessment & Plan Anesthesia* Anesthesia Assessment Anesthesia Assessment: Discussed sedation and/or anesthesia options, risks, benefits, and alternatives with patient/parents/legal guardian/POA. Questions invited. The patient/parents/legal guardian/POA seems to understand and agrees to proceedwith anesthesia plan. Reviewed the physical assessment, medical history, allergy history and patient home medications list prior to surgery/procedure/anesthetic and documented any changes. Performed airway and anesthesia risk assessments. Anesthesia Type Anesthesia Type: MAC History Source History Obtained from:: Patient and Chart Anesthesia Focused Assessment* Temperature: 98.6 F Pulse Rate: 83 Blood Pressure: 109/56 Respiratory Rate: 18 Pulse Ox: 100 Oxygen Delivery Method: Room Air Airway Assessment Mouth opens: >3 cm Mallampati Score: I Teeth Condition: Intact Neck Range of motion (ROM): Full ROM Labs Anesthesia Preop lab: CBC WBC 12.7 K/mm3 (4.5-13.0) 10/29/24 19:15 10/29/24 RBC 3.31 M/mm3 (4.1-4.8) L 10/29/24 19:15 10/29/24 Hgb 9.6 g/dL (12.0-15.0) L 10/29/24 19:15 10/29/24 Hct 26.7 % (37-46) L 10/29/24 19:15 10/29/24 Plt Count 230 K/mm3 (150-450) 10/29/24 19:15 10/29/24 CHEMISTRY Potassium 3.6 mmol/L (3.3-5.1) 10/29/24 19:15 10/29/24 Sodium 135 mmol/L (133-145) 10/29/24 19:15 10/29/24 BUN 6 mg/dL (4-19) 10/29/24 19:15 10/29/24 Creatinine 0.61 mg/dL (0.70-1.20) L 10/29/24 19:15 Glucose 111 mg/dL (70-99) H 10/29/24 19:15 10/29/24 COAG HCG, Quant 42407 mIU/mL (<9 non-preg) H 10/25/24 19:34 Pre-Assessment Diagnosis/Proposed Procedure Planned Operative Procedure(s): suction D&C Anesthesia History Anesthesia History - educational consultant: Anesthesia History - educational consultant Hx Hospitalization Any Problems With Anesthesia No 10/29/24 22:34 Cholinesterase deficiency No 10/29/24 22:34 You/Your Family Experience No 10/29/24 22:34 fever (hyperthermia) with Relationship Recent Exposure to Contagious No 10/29/24 22:34 Disease Does patient have nerve No 10/29/24 22:34 stimulator Patient instructed to have No 10/29/24 22:34 device shut off --Does patient have Pacemaker or ICD? When Was Last Pacemaker Check QUESTION #4 FULL TEXT: You/Your Family Experience fever (hyperthermia) with Anesthesia Last Oral Intake Last Oral intake: Last Oral Intake NPO since Meds taken in AM with sips of water? Meds patient instructed to take am of surgery Any additional information?: Yes NPO since: 09:00 Meds taken in AM with sips of water?: Yes PONV PONV - educational consultant: PONV - educational consultant Female HX of Motion Sickness HX of N/V After Surgery Non-Smoker Duration of Surgery greater than 60 minutes Number of Risk Factors PONV Score Any additional information?: Yes Female: Yes HX of Motion Sickness: No HX of N/VAfter Surgery: No Non-Smoker: Yes Duration of Surgery greater than 60 minutes: No Number of Risk Factors: 2 PONV Score: Moderate Risk Height & Weight Height & Weight: Anesthesia: Height & Weight Height 5 ft 6 in 10/29/24 22:34 Weight: 61.235 kg 10/29/24 22:34 Body Mass Index (BMI) 21.7 10/29/24 22:34 Respiratory Assessment Respiratory Assessment - educational consultant: Respiratory Tract Infection Hx - educational consultant Hx Respiratory Tract Infection No 10/29/24 22:34 STOP Sleep Apnea STOP Sleep Apnea - educational consultant: STOP Sleep Apnea - educational consultant Hx Hypertension No 10/29/24 22:34 Hx Sleep Apnea No 10/29/24 22:34 CPAP BIPAP Do you snore loudly (louder No 10/29/24 22:34 than talking or can be heard Do you often feel tired/ No 10/29/24 22:34 fatigued/ sleepy during daytime? Has anyone observed you stop No 10/29/24 22:34 breathing during sleep? STOP Results Negative 10/29/24 22:34 QUESTION #5 FULL TEXT : Do you snore loudly (louder than talking or can be heard through closed doors)? 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 Specify any problems Hx of Preganancy in last 3 Months Nurse Filling Out Transfusion & Questions: Date: Time: Patient unable to answer at this time (ie. confused, unrespo /Reproduction History /Reproductive History - educational consultant: /Reproductive Hx- educational consultant Hx Now No 10/29/24 22:34 Gestational Age (in weeks): EDC: Hx Hx Para Hx Section SAB No 10/29/24 22:34 [facility] Medical History History of multiple miscarriages Home Medications ?Medication ?Instructions ?Recorded ?Last Taken ?Type NK 10/20/24 Unknown History cephalexin 500 mg capsule 500 mg PO Q12H 5 days #10 ca ps 10/25/24 Unknown Rx Allergy/AdvReac Type Severity Reaction Status Date / Time No Known Allergies Allergy Verified 10/29/24 18:57 Surgical History H/O dilation and curettage Social History housing: house Smoking Status: Never smoker Review of Systems (Anesthesia) ROS Narrative System reviewed and no additional complaints, except as documented. 10/29/24 7976 <Electronically signed by Ralph Medina> Date _ Ralph Lewis MD Cosigner Signature: Date CC: ~ Signed [facility] Work Phone: [phone]) 883-970307-15-2025 History and physical note Author Kadi Rivera [facility] Note Date/Time October 29, 2024 10:1 8pm [facility] Medical Records Department [address] [place] [address] H&P Exam - GROUNDMAN 10/29/246 MR#: [id number] Acct: [id number] Name: NICHOLAS POLLARD Rep #:[id number] : 2005 18 From: Kadi aviles MD PCP: Care Physician,No Primary Status :REG ER Location: ED HPI - General HPI Narrative NICHOLAS POLLARD, is a 18 F who presents @ 14w2d with incomplete ab with retained POC, passed tissue at home today and has had heavy VB since, retained placenta this evening. she denies any fever. PFSH PFSH Medical History History of multiple miscarriages Home Medications ?Medication ?Instructions ?Recorded ?Last Taken ?Type NK 10/20/24 Unknown History cephalexin 500 mg capsule 500 mg PO Q12H 5 days #10 ca ps 10/25/24 Unknown Rx Allergy/AdvReac Type Severity Reaction Status Date / Time No Known Allergies Allergy Verified 10/29/24 18:57 Surgical History H/O dilation and curettage Social History housing: house Smoking Status: Never smoker ROS Constitutional Constitutional: Reports systems reviewed and no addt'l complaints, except as documented; Denies as per HPI, change in weight, fatigue, fever(s), malaise, weakness or other Eyes Eyes: Reports systems reviewed and no addt'l complaints, except as documented; Denies as per HPI, change in vision or other ENT HEENT: Reports as per HPI and dizziness; Denies dry mouth, headache(s), loss taste/smell, nasal congestion, nasal discharge, neck pain, sore throat or other Respiratory/Chest Respiratory/Chest: Reports systems reviewed and no addt'l complaints, except as documented Gastrointestinal Gastrointestinal: Reports systems reviewed and no addt'l complaints, except as documented and nausea; Denies vomiting Musculoskeletal Musculoskeletal: Reports systems reviewed and no addt'l complaints, except as documented; Denies back pain or joint pain Neurologic Neurologic: Reports systems reviewed and no addt'l complaints, except as documented Psychiatric Psychiatric: Reports systems reviewed and no addt'l complaints, except as documented Endocrine Endocrinology: Reports systems reviewed and no addt'l complaints, except as documented Hematologic/Lymphatic Hematologic/Lymphatic: Reports systems reviewed and no addt'l complaints, exceptas documented Vital Signs Vital Signs Vital Signs: 10/29/24 18:55 10/29/24 20:54 10/29/24 22:00 Temperature 98.6 F Temperature Source Oral Pulse Rate 80 65 84 Respiratory Rate 18 15 15 Blood Pressure 115/76 113/71 109/56 L Blood Pressure Mean 89 85 73 Pulse Ox 98 99 99 Oxygen Delivery Method Room Air Room Air Room Air Physical Exam Const alert, oriented x3 and no apparent distress HEENT normocephalic Head and Scalp: atraumatic Eyes EOMs intact bilaterally and conjunctivae normal Neck full ROM, no lymphadenopathy, supple and thyroid normal General: trachea midline Lymph Lymphatic: no lymphadenopathy noted Resp normal respiratory effort, no retractions, no use of accessory muscles and clearto auscultation bilaterally Cardio regular rhythm GI normal to inspection, nondistended, normoactive bowel sounds, soft to palpation,non-distended and no masses Inspection: Negative for abdominal distention Back/Spine no CVA tenderness Extremity normal to inspection Skin no rashes or lesions noted Neuro moves all extremities and deep tendon reflexes 2+ bilaterally Motor Exam: clonus absent Psych mental status grossly normal Labs Labs Labs: Blood Type A NEGATIVE Hct 26.7 % (37-46) L Hgb 9.6 g/dL (12.0-15.0) L Obstetrics Ultrasound Assessment & Plan (1) Retained products of conception with hemorrhage: (2) Incomplete : PLAN: Plan plan suction d and c now After discussing the patient's diagnosis and treatment plan options, patient wishes to proceed with surgical management. I have discussed with the patient the risks, benefits, and alternatives of the procedure which include but are not limited to risks of anesthesia, bleeding, infection, possible damage to bowel, bladder, or surrounding vasculature which could lead to additional surgery to evaluate any complications. Patient agrees to procedure and wishes to proceed. ACOG/uptodate references given for additional information regarding procedure. 10/29/24 5452 <Electronically signed by Kadi Rivera MD> Cosigner Signature (if applicable): CC: Dr. Kadi Rivera MD; No Primary Care Physician~ Signed [facility] Work Phone: [phone] 707-942207-14-2025 Procedure note [facility] Medical Records Department [address] [place] [address] Operative Report 10/29/24 7055 MR#: [id number] Acct: [id number] Name: NICHOLAS POLLARD Rep #:[id number] : 2005 18 From: Kadi aviles MD PCP: Care Physician,No Primary Status :[facility] Location: [place] [address] Problems Associated Problem List Diagnoses (1) Incomplete : (2) Retained products of conception with hemorrhage: Procedures Urinary/Genital [id number]: 53489 Trmt of incomplete Ab, any TM Operative Report (Standard) Operative Information Date of Procedure: 10/29/24 Pre-Operative Diagnosis: see problem list comments Post-Operative Diagnosis: same Surgery/Procedure Performed: suction dilation and curettage cabin outfitter: No Type of Anesthesia: IV Sedation and Local RN Documented Start/Stop Times: Operation Date: 10/29/24 23:00 Case Time Anesthesia Start 10/29/24 23:12 Into Room 10/29/24 23:12 Procedure Start 10/29/24 23:32 Procedure End 10/29/24 23:52 Procedure Start Time: 23:32 Procedure Stop Time: 23:52 Select all DRAINS/GRAFTS/IMPLANTS that apply: None Estimated Blood Loss: 100 Specimen collected: Yes Description of specimen(s) removed: retained POC Description of surgery: Patient was taken to the operating room and placed under MAC local anesthesia. She was prepped and draped in the normal sterile fashion the dorsal lithotomy position. Bladder was drained of clear urine and anterior lip of the cervix wasgrasped and the uterus sounded to 8 cm. Cervix was progressively dilated to allow passage of a 8mm suction curette. Progressive passes were made removing the retained products of conception without complication. Sharp curettage confirmed complete removal of the retained products. bleeding persisted at cervical os, pressure applied and monsels paste and surgiflow used to obtain hemostasis. All instruments were removed from the vagina and excellent hemostasis was noted and the patient was taken to recovery in stable condition. Surgical Findings: retained placenta Complications Complications: No 10/29/24 9227 Cosigner Signature (if applicable): CC: Dr. Kadi Rivera MD; No Primary Care Physician~ Signed [facility]07-14-2025 Consult note [facility] Medical Records Department [address] [facility] [place] [address] Pre-Anesthesia Evaluation 10/29/24 2242 MR#: [id number] Acct: [id number] Name: NICHOLAS POLLARD Rep #:[id number] : 2005 18 From: Ralph Lewis MD PCP: Care Physician,No Primary Status :[facility] Y Race: C Location: [place] [address] ASA Classification* ASA Classification ASA Classification: 2 and E Assessment & Plan Anesthesia* Anesthesia Assessment Anesthesia Assessment: Discussed sedation and/or anesthesia options, risks, benefits, and alternatives with patient/parents/legal guardian/POA. Questions invited. The patient/parents/legal guardian/POA seems to understand and agrees to proceedwith anesthesia plan. Reviewed the physical assessment, medical history, allergy history and patient home medications list prior to surgery/procedure/anesthetic and documented any changes. Performed airway and anesthesia risk assessments. Anesthesia Type Anesthesia Type: MAC History Source History Obtained from:: Patient and Chart Anesthesia Focused Assessment* Temperature: 98.6 F Pulse Rate: 83 Blood Pressure: 109/56 Respiratory Rate: 18 Pulse Ox: 100 Oxygen Delivery Method: Room Air Airway Assessment Mouth opens: >3 cm Mallampati Score: I Teeth Condition: Intact Neck Range of motion (ROM): Full ROM Labs Anesthesia Preop lab: CBC WBC 12.7 K/mm3 (4.5-13.0) 10/29/24 19:15 10/29/24 RBC 3.31 M/mm3 (4.1-4.8) L 10/29/24 19:15 10/29/24 Hgb 9.6 g/dL (12.0-15.0) L 10/29/24 19:15 10/29/24 Hct 26.7 % (37-46) L 10/29/24 19:15 10/29/24 Plt Count 230 K/mm3 (150-450) 10/29/24 19:15 10/29/24 CHEMISTRY Potassium 3.6 mmol/L (3.3-5.1) 10/29/24 19:15 10/29/24 Sodium 135 mmol/L (133-145) 10/29/24 19:15 10/29/24 BUN 6 mg/dL (4-19) 10/29/24 19:15 10/29/24 Creatinine 0.61 mg/dL (0.70-1.20) L 10/29/24 19:15 Glucose 111 mg/dL (70-99) H 10/29/24 19:15 10/29/24 COAG HCG, Quant 00040 mIU/mL (<9 non-preg) H 10/25/24 19:34 Pre-Assessment Diagnosis/Proposed Procedure Planned Operative Procedure(s): suction D&C Anesthesia History Anesthesia History - educational consultant: Anesthesia History - educational consultant Hx Hospitalization Any Problems With Anesthesia No 10/29/24 22:34 Cholinesterase deficiency No 10/29/24 22:34 You/Your Family Experience No 10/29/24 22:34 fever (hyperthermia) with Relationship Recent Exposure to Contagious No 10/29/24 22:34 Disease Does patient have nerve No 10/29/24 22:34 stimulator Patient instructed to have No 10/29/24 22:34 device shut off --Does patient have Pacemaker or ICD? When Was Last Pacemaker Check QUESTION #4 FULL TEXT: You/Your Family Experience fever (hyperthermia) with Anesthesia Last Oral Intake Last Oral intake: Last Oral Intake NPO since Meds taken in AM with sips of water? Meds patient instructed to take am of surgery Any additional information?: Yes NPO since: 09:00 Meds taken in AM with sips of water?: Yes PONV PONV - educational consultant: PONV - educational consultant Female HX of Motion Sickness HX of N/V After Surgery Non-Smoker Duration of Surgery greater than 60 minutes Number of Risk Factors PONV Score Any additional information?: Yes Female: Yes HX of Motion Sickness: No HX of N/VAfter Surgery: No Non-Smoker: Yes Duration of Surgery greater than 60 minutes: No Number of Risk Factors: 2 PONV Score:Moderate Risk Height & Weight Height & Weight: Anesthesia: Height & Weight Height 5 ft 6 in 10/29/24 22:34 Weight: 61.235 kg 10/29/24 22:34 Body Mass Index (BMI) 21.7 10/29/24 22:34 Respiratory Assessment Respiratory Assessment - educational consultant: Respiratory Tract Infection Hx - educational consultant Hx Respiratory Tract Infection No 10/29/24 22:34 STOP Sleep Apnea STOP Sleep Apnea - educational consultant: STOP Sleep Apnea - educational consultant Hx Hypertension No 10/29/24 22:34 Hx Sleep Apnea No 10/29/24 22:34 CPAP BIPAP Do you snore loudly (louder No 10/29/24 22:34 than talking or can be heard Do you often feel tired/ No 10/29/24 22:34 fatigued/ sleepy during daytime? Has anyone observed you stop No 10/29/24 22:34 breathing during sleep? STOP Results Negative 10/29/24 22:34 QUESTION #5 FULL TEXT : Do you snore loudly (louder than talking or can be heard through closeddoors)? 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 Specify any problems Hx of Preganancy in last 3 Months Nurse Filling Out Transfusion & Questions: Date: Time: Patient unable to answer at this time (ie. confused, unrespo /Reproduction History /Reproductive History - educational consultant: /Reproductive Hx- educational consultant Hx Now No 10/29/24 22:34 Gestational Age (in weeks): EDC: Hx Hx Para Hx Section SAB No 10/29/24 22:34 [facility] History History of multiple miscarriages Home Medications ?Medication ?Instructions ?Recorded ?Last Taken ?Type NK 10/20/24 Unknown History cephalexin 500 mg capsule 500 mg PO Q12H 5 days #10 ca ps 10/25/24 Unknown Rx Allergy/AdvReac Type Severity Reaction Status Date / Time No Known Allergies Allergy Verified 10/29/24 18:57 Surgical History H/O dilation and curettage Social History housing: house Smoking Status: Never smoker Review of Systems (Anesthesia) ROS Narrative System reviewed and no additional complaints, except as documented. 10/29/24 2313 D> Date _ Ralph Lewis MD Cosigner Signature: Date CC: ~ Signed [facility]07-14-2025 Discharge summary [facility] Medical Records Department [address] [place] [address] Emergency Department Summary 10/29/24 MR#: [id number] Acct: [id number] Name: NICHOLAS POLLARD Flora Rep #:[id number] : 2005 18 From: Bo Martinez MD PCP: Care Physician,No Primary Status :[facility] Location: [facility]- HPI HPI - Female History of Present Illness Chief Complaint: Vag Bld, Preg Narrative Narrative: 18-year-old female, G2, P0 at approximately 14 weeks gestation presents via EMS status post miscarriage today with continued vaginal bleeding and cramping. Sherelates history that her first pregnancysounds more like she had a blighted ovum. She needed a D&C which was performed at an outside facility back in May. Subsequently she became . She is currently approximately 14 weeks gestation. She states that on October 20, approximately 9 days ago she had vaginal spotting. She receivedRhoGAM, and was supposed to follow-up with Dr. Anderson tomorrow. However, while the vaginal bleeding/spotting had ceased, today she started having increased vaginal bleeding, then she states that this started at noon and at 2 PM she passed the fetus and the placenta. However, naila feels lightheaded and is having continued vaginal bleeding as well as pelviccramping. [facility] Medical History History of multiple miscarriages Home Medications ?Medication ?Instructions ?Recorded ?Last Taken ?Type NK 10/20/24 Unknown History cephalexin 500 mg capsule 500 mg PO Q12H 5 days #10 ca ps 10/25/24 Unknown Rx Allergy/AdvReac Type Severity Reaction Status Date / Time No Known Allergies Allergy Verified 10/29/24 18:57 Surgical History H/O dilation and curettage Social History housing: house Smoking Status: Never smoker ROS ROS ED ROS Narrative Review of systems positive for vaginal bleeding and cramping, passage of products of conception reportedly. Positive lightheadedness. Positive thirst. EXAM Physical Exam Narrative Exam Narrative: Afebrile. Vital signs noted. Nontoxic-appearing. Cardiovascular examination reveals regular rate and rhythm. Lungs are clear to auscultation bilaterally. Abdomen is soft with tenderness to palpation of the suprapubic area but no guarding or rebound. Positive bowel sounds. Neurological examination no nfocal,nonlateralizing. Const Vital Signs: 10/29/24 18:55 10/29/24 20:54 10/29/24 22:00 Temperature 98.6 F Temperature Source Oral Pulse Rate 80 65 84 Respiratory Rate 18 15 15 Blood Pressure 115/76 113/71 109/56 L Blood Pressure Mean 89 85 73 Blood Pressure Source Blood Pressure Position Blood Pressure Location Pulse Ox 98 99 99 Oxygen Delivery Method Room Air Room Air Room Air 10/29/24 22:34 10/29/24 22:44 Temperature 98.6 F 98.6 F Temperature Source Oral Pulse Rate 83 83 Respiratory Rate 18 18 Blood Pressure 109/56 L 109/56 L Blood Pressure Mean 73 Blood Pressure Source Monitor Blood Pressure Position Semi-Fowlers Blood Pressure Location Right Arm Pulse Ox 100 100 Oxygen Delivery Method Room Air Room Air MDM MDM MDM Narrative Medical decision making narrative: I reviewed her prior records and she is a negative blood type. She states the father of the fetus is a positive that is why she received RhoGAM when she had spotting. Concern is for retained productsof conception versus complete miscarriage versus continued vaginal bleeding with miscarriage. I reviewed her laboratory work and she has elevated white count of 12.7 with hemoglobin 9.6. I do not feel she needs transfusion. Platelet count 230. Carbon dioxide slightly low at 18.8 which I thinkis nonspecific, creatinine lowat 0.61. Alk phos slightly elevated at 109 which I also think is nonspecific. Chaperoned pelvic examination/speculum examination did show small amount of blood in the vaginal vault with possible retained products blocking the os. I reviewed the radiology report of the ultrasound, which comments on interval spontaneous with retained products of conception. Patient had a near syncopal episode when she attempted to ambulate to the bathroom. She was given a bolus of IV fluids. I did review her prior medication list and prior ED visits. She was seen on theh for the vaginal spotting that she had stated but she was also seen on the with concern of oligohydramnios andpossibility of miscarriage. She has received RhoGAM on her visit on the as she had stated. Given her heavy vaginal bleeding since noon, and retained products of conception, I discussed the patient with Dr. Kadi Rivera who will see the patient in the emergency department and most likelytake her to the OR for suction dilation andcurettage. Patient is in stable condition. History & Record Review Discussion w/independent historian: Patient Lab Data Attestation: I reviewed the patient's lab results. Labs: Laboratory Results - last 24 hr 10/29/24 19:15 WBC 12.7 RBC 3.31 L Hgb 9.6 L Hct 26.7 L MCV 80.7 MCH 29.0 MCHC 36.0 RDW Std Deviation 37.1 RDW Coeff of [place] 12.8 Plt Count 230 MPV 10.2 Immature Gran % (Auto) 0.800 Neut % (Auto) 83.1 H Lymph % (Auto) 12.8 L [place] % (Auto) 2.9 L Eos % (Auto) 0.1 Baso % (Auto) 0.3 Absolute Neuts (auto) 10.5 H Absolute Lymphs (auto) 1.62 Nucleated RBC % 0 Sodium 135 Potassium 3.6 Chloride 104 Carbon Dioxide 18.8 L Anion Gap 12 BUN 6 Creatinine 0.61 L Est GFR (MDRD) Non-Af 133 BUN/Creatinine Ratio 10.0 Glucose 111 H Calcium 8.8 Total Bilirubin 0.33 AST 19 ALT 11 Alkaline Phosphatase 109 H Total Protein 6.5 Albumin 3.6 Globulin 3.0 Albumin/Globulin Ratio 1.2 Radiography Diagnostic Testing: Clinical Impression(s) from Imaging Studies Obstetrics Ultrasound 10/29/24 19:08 IMPRESSION: Interval spontaneous , suspected retained products of conception. Progress imaging as clinically determined. Reading Location: [place] [address] Discharge Plan Dx/Rx/DC Orders Clinical Impression: Retained products of conception with hemorrhage, Spontaneous miscarriage Disposition Disposition: Acute Care Hospital [facility] What to do if you have Problems For any increased pain, shortness of breath, bleeding, nausea or vomiting, chestpain, or any unexpected problems, contact your Primary Care Provider. Call [facility] ([phone]) or report tothe closest Emergency Room. Call 911 if necessary. 10/29/242245 Cosigner Signature (if applicable): CC: No Primary Care Physician ~ Signed [facility]07-14-2025 History and physical note [facility] Medical Records Department [address] [place] [address] H&P Exam - GROUNDMAN 10/29/246 MR#: [id number] Acct: [id number] Name: NICHOLAS POLLARD Rep #:[id number] : 2005 18 From: Kadi aviles MD PCP: Care Physician,No Primary Status :REG ER Location: ED HPI - General HPI Narrative NICHOLAS POLLARD, is a 18 F who presents @ 14w2d with incomplete ab with retained POC, passed tissue at home today and has had heavy VB since, retained placenta this evening. she denies anyfever. [facility] Medical History History of multiple miscarriages Home Medications ?Medication ?Instructions ?Recorded ?Last Taken ?Type NK 10/20/24 Unknown History cephalexin 500 mg capsule 500 mg PO Q12H 5 days #10 ca ps 10/25/24 Unknown Rx Allergy/AdvReac Type Severity Reaction Status Date / Time No Known Allergies Allergy Verified 10/29/24 18:57 Surgical History H/O dilation and curettage Social History housing: house Smoking Status: Never smoker ROS Constitutional Constitutional: Reports systems reviewed and no addt'l complaints, except as documented; Denies as per HPI, change in weight, fatigue, fever(s), malaise, weakness or other Eyes Eyes: Reports systems reviewed and no addt'l complaints, except as documented; Denies as per HPI, change in vision or other ENT HEENT: Reports as per HPI and dizziness; Denies dry mouth, headache(s), loss taste/smell, nasal congestion, nasal discharge, neck pain, sore throat or other Respiratory/Chest Respiratory/Chest: Reports systems reviewed and no addt'l complaints, except as documented Gastrointestinal Gastrointestinal: Reports systems reviewed and no addt'l complaints, except as documented and nausea; Denies vomiting Musculoskeletal Musculoskeletal: Reports systems reviewed and no addt'l complaints, except as documented; Denies back pain or joint pain Neurologic Neurologic: Reports systems reviewed and no addt'l complaints, except as documented Psychiatric Psychiatric: Reports systems reviewed and no addt'l complaints, except as documented Endocrine Endocrinology: Reports systems reviewed and no addt'l complaints, except as documented Hematologic/Lymphatic Hematologic/Lymphatic: Reports systems reviewed and no addt'l complaints, exceptas documented Vital Signs Vital Signs Vital Signs: 10/29/24 18:55 10/29/24 20:54 10/29/24 22:00 Temperature 98.6 F Temperature Source Oral Pulse Rate 80 65 84 Respiratory Rate 18 15 15 Blood Pressure 115/76 113/71 109/56 L Blood Pressure Mean 89 85 73 Pulse Ox 98 99 99 Oxygen Delivery Method Room Air Room Air Room Air Physical Exam Const alert, oriented x3 and no apparent distress HEENT normocephalic Head and Scalp: atraumatic Eyes EOMs intact bilaterally and conjunctivae normal Neck full ROM, no lymphadenopathy, supple and thyroid normal General: trachea midline Lymph Lymphatic: no lymphadenopathy noted Resp normal respiratory effort, no retractions, no use of accessory muscles and clearto auscultation bilaterally Cardio regular rhythm GI normal to inspection, nondistended, normoactive bowel sounds, soft to palpation,non-distended and no masses Inspection: Negative for abdominal distention Back/Spine no CVA tenderness Extremity normal to inspection Skin no rashes or lesions noted Neuro moves all extremities and deep tendon reflexes 2+ bilaterally Motor Exam: clonus absent Psych mental status grossly normal Labs Labs Labs: Blood Type A NEGATIVE Hct 26.7 % (37-46) L Hgb 9.6 g/dL (12.0-15.0) L Obstetrics Ultrasound Assessment & Plan (1) Retained products of conception with hemorrhage: (2) Incomplete : PLAN: Plan plan suction d and c now After discussing the patient's diagnosis and treatment plan options, patient wishes to proceed with surgical management. I have discussed with the patient the risks, benefits, and alternatives of the procedure which include but are not limited to risks of anesthesia, bleeding, infection, possible damage to bowel, bladder, or surrounding vasculature which could lead to additional surgery to evaluate any complications. Patient agrees to procedure and wishes to proceed. ACOG/uptodate references given for additional information regarding procedure. 10/29/244 Cosigner Signature (if applicable): CC: Dr. Kadi Rivera MD; No Primary Care Physician~ Signed [facility]07-14-2025 Radiology Diagnostic study note [facility] Imaging Services [address], [place] [id number] Transvaginal w/Preg MR#: [id number] Acct: [id number] Name: NICHOLAS POLLARD Rep #: [id number] : 2005 F 18 From: Charley Viera MD PCP: Care Physician,No Primary Status: REG ER Study:Transvaginal w/Preg US Date of Exam: 10/29/24 Exam# [id number] Ordering Dr: Bo Martinez MD PROCEDURE: TRANSVAGINAL W/PREG US 10/29/2024 REASON FOR EXAM: VAGINAL BLEEDING WITH TECHNIQUE: TRANSVAGINAL W/PREG US COMPARISON: 10/25/2024 FINDINGS: Within the uterine cavity, there is no longer an IUP, which as noted previously. The endometrial stripe measures 2.5 cm with some vascularity consistent with retained products of conception. Right ovary measures 1 x 1 x 2 cm with good blood flow. The left ovary measures1 x 3 x 3 cm with good blood flow, and a corpus luteal cyst. No significant pelvic free fluid. US/Transvaginal w/Preg US IMPRESSION: Interval spontaneous , suspected retained products of conception. Progress imaging as clinically determined. Reading Location: [place] [address] CC: Dr. Bo Martinez MD; No Primary Care Physician ~ Line Installer Repairer: Signed [facility]07-14-2025 Discharge summary Author Bo Martinez [facility] Note Date/Time October 29, 2024 10:4 6pm [facility] Medical Records Department [address] [place] [address] Emergency Department Summary 10/29/24 MR#: [id number] Acct: [id number] Name: NICHOLAS POLLARD Rep #:[id number] : 2005 18 From: Bo Martinez MD PCP: Care Physician,No Primary Status :[facility] Location: [place] [address]- HPI HPI - Female History of Present Illness Chief Complaint: Vag Bld, Preg Narrative Narrative: 18-year-old female, G2, P0 at approximately 14 weeks gestation presents via EMS status post miscarriage today with continued vaginal bleeding and cramping. Darricktes history that her first sounds more like she had a blighted ovum. She needed a D&C which was performed at an outside facility back in May. Subsequently she became . She is currently approximately 14 weeks gestation. She states that on October 20, approximately 9 days ago she had vaginal spotting. She received RhoGAM, and was supposed to follow-up with Dr. Anderson tomorrow. However, while the vaginal bleeding/spotting had ceased, today she started having increased vaginal bleeding, then she states that this started at noon and at 2 PM she passed the fetus and the placenta. However, naila feels lightheaded and is having continued vaginal bleeding as well as pelviccramping. PFSH [facility] Medical History History of multiple miscarriages Home Medications ?Medication ?Instructions ?Recorded ?Last Taken ?Type NK 10/20/24 Unknown History cephalexin 500 mg capsule 500 mg PO Q12H 5 days #10 ca ps 10/25/24 Unknown Rx Allergy/AdvReac Type Severity Reaction Status Date / Time No Known Allergies Allergy Verified 10/29/24 18:57 Surgical History H/O dilation and curettage Social History housing: house Smoking Status: Never smoker ROS ROS ED ROS Narrative Review of systems positive for vaginal bleeding and cramping, passage of products of conception reportedly. Positive lightheadedness. Positive thirst. EXAM Physical Exam Narrative Exam Narrative: Afebrile. Vital signs noted. Nontoxic-appearing. Cardiovascular examination reveals regular rate and rhythm. Lungs are clear to auscultation bilaterally. Abdomen is soft with tenderness to palpation of the suprapubic area but no guarding or rebound. Positive bowel sounds. Neurological examination nonfocal,nonlateralizing. Const Vital Signs: 10/29/24 18:55 10/29/24 20:54 10/29/24 22:00 Temperature 98.6 F Temperature Source Oral Pulse Rate 80 65 84 Respiratory Rate 18 15 15 Blood Pressure 115/76 113/71 109/56 L Blood Pressure Mean 89 85 73 Blood Pressure Source Blood Pressure Position Blood Pressure Location Pulse Ox 98 99 99 Oxygen Delivery Method Room Air Room Air Room Air 10/29/24 22:34 10/29/24 22:44 Temperature 98.6 F 98.6 F Temperature Source Oral Pulse Rate 83 83 Respiratory Rate 18 18 Blood Pressure 109/56 L 109/56 L Blood Pressure Mean 73 Blood Pressure Source Monitor Blood Pressure Position Semi-Fowlers Blood Pressure Location Right Arm Pulse Ox 100 100 Oxygen Delivery Method Room Air Room Air MDM MDM MDM Narrative Medical decision making narrative: I reviewed her prior records and she is a negative blood type. She states the father of the fetus is a positive that is why she received RhoGAM when she had spotting. Concern is for retained products of conception versus complete miscarriage versus continued vaginal bleeding with miscarriage. I reviewed her laboratory work and she has elevated white count of 12.7 with hemoglobin 9.6. I do not feel she needs transfusion. Platelet count 230. Carbon dioxide slightly low at 18.8 which I think is nonspecific, creatinine lowat 0.61. Alk phos slightly elevated at 109 which I also think is nonspecific. Chaperoned pelvic examination/speculum examination did show small amount of blood in the vaginal vault with possible retained products blocking the os. I reviewed the radiology report of the ultrasound, which comments on interval spontaneous with retained products of conception. Patient had a near syncopal episode when she attempted to ambulate to the bathroom. She was given a bolus of IV fluids. I did review her prior medication list and prior ED visits. She was seen on the for the vaginal spotting that she had stated but she was also seen on the with concern of oligohydramnios and possibility of miscarriage. She has received RhoGAM on her visit on the as she had stated. Given her heavy vaginal bleeding since noon, and retained products of conception, I discussed the patient with Dr. Kadi Rivera who will see the patient in the emergency department and most likely take her to the OR for suction dilation andcurettage. Patient is in stable condition. History & Record Review Discussion w/independent historian: Patient Lab Data Attestation: I reviewed the patient's lab results. Labs: Laboratory Results - last 24 hr 10/29/24 19:15 WBC 12.7 RBC 3.31 L Hgb 9.6 L Hct 26.7 L MCV 80.7 MCH 29.0 MCHC 36.0 RDW Std Deviation 37.1 RDW Coeff of Key[place] 12.8 Plt Count 230 MPV 10.2 Immature Gran % (Auto) 0.800 Neut % (Auto) 83.1 H Lymph % (Auto) 12.8 L [place] % (Auto) 2.9 L Eos % (Auto) 0.1 Baso % (Auto) 0.3 Absolute Neuts (auto) 10.5 H Absolute Lymphs (auto) 1.62 Nucleated RBC % 0 Sodium 135 Potassium 3.6 Chloride 104 Carbon Dioxide 18.8 L Anion Gap 12 BUN 6 Creatinine 0.61 L Est GFR (MDRD) Non-Af 133 BUN/Creatinine Ratio 10.0 Glucose 111 H Calcium 8.8 Total Bilirubin 0.33 AST 19 ALT 11 Alkaline Phosphatase 109 H Total Protein 6.5 Albumin 3.6 Globulin 3.0 Albumin/Globulin Ratio 1.2 Radiography Diagnostic Testing: Clinical Impression(s) from Imaging Studies Obstetrics Ultrasound 10/29/24 19:08 IMPRESSION: Interval spontaneous , suspected retained products of conception. Progress imaging as clinically determined. Reading Location: [place] [address] Discharge Plan Dx/Rx/DC Orders Clinical Impression: Retained products of conception with hemorrhage, Spontaneous miscarriage Disposition Disposition: [facility] What to do if you have Problems For any increased pain, shortness of breath, bleeding, nausea or vomiting, chestpain, or any unexpected problems, contact your Primary Care Provider. Call [employer] [facility] ([phone]) or report to the closest Emergency Room. Call 911 if necessary. 10/29/242245 <Electronically signed by Bo Martinez MD> Cosigner Signature (if applicable): CC: No Primary Care Physician ~ Signed [facility] Work Phone: 1(695) 662-942507-10-2025 Discharge summary [facility] Medical Records Department [address] [place] [address] Emergency Department Summary 10/25/24 MR#: [id number] Acct: [id number] Name: NICHOLAS POLLARD Rep #:[id number] : 2005 18 From: Wally Ames DO PCP: Care Physician,No Primary Status :REG ER Location: ED HPI History of Present Illness Chief Complaint: General Illness Narrative Narrative: Patient is a 18-year-old female G2, P0 with 1 miscarriage with a D&C who presented to the emergency department with a chief complaint of vaginal discharge. Patient states that she is currently 13weeks she was here on Tuesday she has not followed up with an GROUNDMAN. States that she had vaginalbleeding on Tuesday [...] vaginal region. Patient denies any vaginal bleeding. [facility] Medical History History of multiple miscarriages [...] was sent for culture. Patient's ultrasound showed asingle live intrauterine with a heart rate of 161 with oligohydramnios. Mild free fluid in cul-de-sac. Discussed case with Dr. Anderson who states that she will notify the office staff that she needs to call tomorrow for an appointment and be seen soon. I discussed the results with the patient and notified her of the results and there is a probabilitythat she will miscarry. She did note that [...] in time. All question concerns answered she wasdischarged home in stable condition. Lab Data Labs: Laboratory Results - last 24 hr 10/25/24 10/25/24 19:34 19:46 WBC 8.8 RBC 4.39 Hgb 12.7 Hct 36.1 L MCV 82.2 MCH 28.9 MCHC 35.2 RDW Std Deviation 37.8 RDW Coeff of Keya 12.7 Plt Count 243 MPV 9.6 Immature Gran % (Auto) 0.500 Neut % (Auto) 73.3 H Lymph % (Auto) 21.9 L [place] % (Auto) 3.6 Eos % (Auto) 0.2 [...] Albumin/Globulin Ratio 1.1 Lipase 22 HCG, Quant 04379 H Urine Color Yellow Urine Clarity Clear Urine pH 6.0 Ur Specific [place] 1.025 Urine Protein 30 H Urine Glucose [...] free fluid in the cul-de-sac. Reading Location: [id number] Discharge Plan Triage Chief Complaint: General Illness ED Provider: Wally Ames Dx/Rx/DC Orders Clinical Impression: Oligohydramnios, Threatened miscarriage, Prescriptions: New cephalexin 500 mg capsule 500 mg PO Q12H 5 Days Qty: 10 0RF No Action NK Primary Care Provider: Care Physician,No Primary Referrals: Care Physician,No Primary [Primary Care Provider] - Cherrie Cardoza [...] infection. Follow-up on urine culture. Print Language: Ivorian Disposition Disposition: Home, Self Care What to do if you have Problems For any increased pain, shortness of breath, bleeding, nausea or vomiting, chestpain, or any unexpected problems, contact your Primary Care Provider. Call [facility] ([phone]) or report tothe closest Emergency Room. Call 911 if necessary. 10/25/24 2200 Cosigner Signature (if applicable): CC: No Primary Care Physician ~ Signed [facility]07-10-2025 Radiology Diagnostic study note [facility] Imaging Services [address] [place] [address] Init OB < 14Wks US MR#: [id number] Acct: [id number] Name: NICHOLAS POLLARD Rep #: [id number] : 2005 F 18 From: Cyrus Lao MD PCP: Care Physician,No Primary Status: REG ER Study:Init OB < 14Wks US Date of Exam: 0 10/25/24 Exam# [id number] Ordering Dr: Pankaj Ames DO PROCEDURE: INIT [...] free fluid in the cul-de-sac. Reading Location: [id number] CC: Dr. Wally Ames DO; No Primary Care Physician ~ Line Installer Repairer: Signed [facility]07-10-2025 Discharge summary Author Wally Ames [facility] Note Date/Time October 25, 2024 10:0 0pm [facility] Medical Records Department [address] [place] [address] Emergency Department Summary 10/25/24 MR#: [id number] Acct: [id number] Name: NICHOLAS POLLARD Rep #:[id number] : 2005 18 From: Wally Ames [...] she has not followed up with an GROUNDMAN. States that she had vaginalbleeding on Tuesday [...] vaginal region. Patient denies any vaginal bleeding. [facility] Medical History History of multiple miscarriages [...] 73.3 H Lymph % (Auto) 21.9 L [place] % (Auto) 3.6 Eos % (Auto) 0.2 [...] Albumin/Globulin Ratio 1.1 Lipase 22 HCG, Quant 63526 H Urine Color Yellow Urine Clarity Clear Urine pH 6.0 Ur Specific [place] 1.025 Urine Protein 30 H Urine Glucose [...] free fluid in the cul-de-sac. Reading Location: [place] [address] Discharge Plan Triage Chief Complaint: General Illness ED Provider: Wally Ames Dx/Rx/DC Orders Clinical Impression: Oligohydramnios, Threatened miscarriage, Prescriptions: New cephalexin 500 mg capsule 500 mg PO Q12H 5 Days Qty: 10 0RF No Action NK Primary Care Provider: Care Physician,No Primary Referrals: Care Physician,No Primary [Primary Care Provider] - Cherrie Cardoza [...] infection. Follow-up on urine culture. Print Language: Ivorian Disposition Disposition: Home, Self Care What to do if you have Problems For any increased pain, shortness of breath, bleeding, nausea or vomiting, chestpain, or any unexpected problems, contact your Primary Care Provider. Call [facility] ([phone]) or report to the closest Emergency Room. Call 911 if necessary. 10/25/24 2200 <Electronically signed by Wally Ames DO> Cosigner Signature (if applicable): CC: No Primary Care Physician ~ Signed [facility] Work Phone: 1(580) 997-454007-05-2025 Discharge summary [facility] Medical Records Department [address] [place] [address] Emergency Department Summary 10/20/24 MR#: [id number] Acct: [id number] Name: NICHOLAS POLLARD Rep #:[id number] : 2005 18 From: Sid Piña [...] at 13 weeks and 1 day. heart [id number]. Due date estimated at April 26, 2025. Labs: Laboratory Results - last 24 hr 10/20/24 19:45 Urine Color Straw Urine Clarity Clear Urine pH 7.0 Ur Specific [place] 1.010 Urine Protein Negative Urine Glucose (UA) [...] Estimated due date of 04/26/2025 Reading Location: [place] [address] Discharge Plan Triage Chief Complaint: Vag Bld, Preg ED Provider: Sid Piña Dx/Rx/DC Orders Clinical Impression: First trimester , Threatened miscarriage Instructions: Rh-Negative Screening, 1st Trimester, Miscarriage Threatened Prescriptions: No Action NK Primary Care Provider: Care Physician,No Primary Referrals: Cherrie Cardoza, [Med Staff - Active Staff] - As soon as possible (Call their office to get an appointment to be seen as soon as possible.) Care Physician,No Primary [Primary Care Provider] - Activity Restrictions/Additional Instructions: Pelvic rest. No lifting. No intercourse. Plenty of fluids. Tylenol for pain. Call and follow-up with the GROUNDMAN. Print Language: Ivorian Disposition Disposition: Home, Self Care What to do if you have Problems For any increased pain, shortness of breath, bleeding, nausea or vomiting, chestpain, or any unexpected problems, contact your Primary Care Provider. Call [facility] ([phone]) or report tothe closest Emergency Room. Call 911 if necessary. 10/20/242150 Cosigner Signature (if applicable): CC: No Primary Care Physician ~ Signed [facility]07-05-2025 Radiology Diagnostic study note [facility] Imaging Services [address] [address] Init OB < 14Wks US MR#: [id number] Acct: [id number] Name: NICHOLAS POLLARD Rep #: [id number] : 2005 F 18 From: Charley Viera MD PCP: Care Physician,No Primary Status: REG ER Study:Init OB < 14Wks US Date of Exam: 0 10/20/24 Exam# [id number] Ordering Dr: Benjamin Piña MD PROCEDURE: INIT [...] Estimated due date of 04/26/2025 Reading Location: [place] [address] CC: Dr. Sid Piña MD; No Primary Care Physician ~ Line Installer Repairer: Signed [facility]07-05-2025 Discharge summary Author Sid Piña [facility] Note Date/Time October 20, 2024 9:51p m [facility] Medical Records Department [address] [place] [address] Emergency Department Summary 10/20/24 MR#: [id number] Acct: [id number] Name: NICHOLAS POLLARD Rep #:[id number] 6 : 2005 18 From: Sid Piña [...] at 13 weeks and 1 day. heart [id number]. Due date estimated at April 26, 2025. Labs: Laboratory Results - last 24 hr 10/20/24 19:45 Urine Color Straw Urine Clarity Clear Urine pH 7.0 Ur Specific [place] 1.010 Urine Protein Negative Urine Glucose (UA) [...] Estimated due date of 04/26/2025 Reading Location: [place] [address] Discharge Plan Triage Chief Complaint: Vag Bld, Preg ED Provider: Sid Piña Dx/Rx/DC Orders Clinical Impression: First trimester , Threatened miscarriage Instructions: Rh-Negative Screening, 1st Trimester, Miscarriage Threatened Prescriptions: No Action NK Primary Care Provider: Care Physician,No Primary Referrals: Cherrie Cardoza DO [Med Staff - Active Staff] - As soon as possible (Call their office Tuesday morning to get an appointment to be seen as soon as possible.) Care Physician,No Primary [Primary Care Provider] - Activity Restrictions/Additional Instructions: Pelvic rest. No lifting. No intercourse. Plenty of fluids. Tylenol for pain. Call and follow-up with the GROUNDMAN. Print Language: Ivorian Disposition Disposition: Home, Self Care What to do if you have Problems For any increased pain, shortness of breath, bleeding, nausea or vomiting, chestpain, or any unexpected problems, contact your Primary Care Provider. Call [facility] ([phone]) or report to the closest Emergency Room. Call 911 if necessary. 10/20/242150 <Electronically signed by Sid Piña MD> Cosigner Signature (if applicable): CC: No Primary Care Physician ~ Signed [facility] Work Phone: 1(221) 102-304805-21-2025 Radiology Diagnostic study note [facility] Imaging Services [address] [place] [address] Chest PA and Lateral MR#: [id number] Acct: [id number] Name: NICHOLAS POLLARD Rep #: [id number] : 2005 F 18 From: Cyrus Lao MD PCP: Care Physician,No Primary Status: REG ER Study:Chest PA and Lateral Date of Exam: 09/05/24 Exam# [id number] Ordering Dr: Jesús Shi DO PROCEDURE: CHEST PA AND LATERAL 09/05/2024 REASON FOR EXAM: INJURY TECHNIQUE: Frontal and lateral views of the chest. COMPARISON: None. FINDINGS: Hardware: None. Heart: The heart size is normal. Mediastinum: The mediastinal contour is unremarkable. Lungs: The lungs are clear. Bones: The bones are unremarkable. RAD/Chest PA and Lateral IMPRESSION: NO ACUTE FINDINGS. Reading Location: [id number] CC: Dr. Jesús Shi, DO; No Primary Care Physician ~ Line Installer Repairer: Signed [facility]05-12-2025 NoteHNO ID: [id number] Author: CHARLA LONG APRN.CHRISTOPHER Service: ? Author Type: Nurse Practitioner Type: Progress Notes Filed: 08/27/2024 18:06 Note Text: Patient came in with complaints of chest discomfort and shortness of breath. Patient says it hurts to breathe. Patient says when she is walking she is extremely short of breath. 3 days ago they were in the [facility] [place] the water was high and she [...] chest. Unable to rule out blood clot here.[facility]05-12-2025 History of Present illness Narrative* Charla Long APRN.CHRISTOPHER - 08/27/2024 6:05 PM EDT Patient came in with complaints of chest discomfort and shortness of breath. Patient says it hurts to breathe. Patient says when she is walking she is extremely short of breath. 3 days ago they were in the [facility] [place] the water was high and she [...] out blood clot here. documented in this encounter02-26-2025 History of Present illness Narrative* Grisel Sibley [...] review of systems was otherwise negative. Objective: Uplands Division Director: Grisel Patient refuses Uplands Division Director: N/A Physical Exam: BP 114/66 (BP Location: [...] Condoms for BC. . documented in this encounterCLEVELAND CLINIC MENTOR [id number] Nurse Note* Debbie Cuevas RN - 05/30/2024 [...] number given, voiced understanding. documented in this encounterCLEVELAND CLINIC MENTOR [id number] Nurse Surgical operation note* Debbie Cuevas RN [...] office and phone number given, voiced understanding. [id number] Surgery Postoperative evaluation and management note* Op Note - Daniel Dover MD - 05/30/2024 8:27 AM EST Operative Report PREOPERATIVE DIAGNOSIS: Missed . POSTOPERATIVE DIAGNOSIS: Missed . PROCEDURE: dilatation of Cervix and suction curettage. SURGEONS: Daniel Dvoer MD Circ:Yazmin [place]:Edvin ANESTHESIA: MAC By: Dr. Aguilera ESTIMATED BLOOD [...] machine was not quantified. Daniel Dover MD [facility] [id number] Miscellaneous Notes* Op Note - Daniel Dover MD - 05/30/2024 8:27 AM EST Operative Report PREOPERATIVE DIAGNOSIS: Missed . POSTOPERATIVE DIAGNOSIS: Missed . PROCEDURE: dilatation of Cervix and suction curettage. SURGEONS: Daniel Dover MD Circ:Yazmin [place]:Edvin ANESTHESIA: MAC By: Dr. Aguilera ESTIMATED BLOOD [...] - 05/30/2024 8:25 AM EST Nicholas Pollard ([id number]) PRE OPERATIVE DIAGNOSIS Blighted ovum [O02.0] Missed POST OPERATIVE DIAGNOSIS Blighted ovum [O02.0] Missed PROCEDURE PERFORMED Procedure(s) (LRB): HYSTEROSCOPY W/ REMOVAL FB (Consent States: 'Hysteroscopy with Symphion for Management of Blighted') (N/A) Suction curettage of endometrium PRIMARY CLOSURE N/A INTRAOPERATIVE FINDINGS POC identified SURGEON Surgeons and Role: * Daniel Dover MD - Primary ANESTHESIOLOGIST Anesthesiologist: Sharyn Aguilera MD NURSING CARE ATTENDANT: Catherine Torres CRNA SURGICAL STAFF Director Of Counseling: Caron Peoples RN Scrub Person: Nilda Garcia Director Of Counseling Assist: Marge Rubio; Lorie Avila RN COMPLICATIONS [...] 30, 2024 8:25 AM documented in this [facility]02-12-2025 Surgery Postoperative evaluation and management note* Brief Op Note - Daniel Dover MD - 05/30/2024 8:25 AM EST Nicholas Pollard ([id number]) PRE OPERATIVE DIAGNOSIS Blighted ovum [O02.0] Missed POST OPERATIVE DIAGNOSIS Blighted ovum [O02.0] Missed PROCEDURE PERFORMED Procedure(s) (LRB): HYSTEROSCOPY W/ REMOVAL FB (Consent States: 'Hysteroscopy with Symphion for Management of Blighted') (N/A) Suction curettage of endometrium PRIMARY CLOSURE N/A INTRAOPERATIVE FINDINGS POC identified SURGEON Surgeons and Role: * Daniel Dover MD - Primary ANESTHESIOLOGIST Anesthesiologist: Sharyn Aguilera MD NURSING CARE ATTENDANT: Catherine Torres CRNA SURGICAL STAFF Director Of Counseling: Caron Peoples RN Scrub Person: Nilda Garcia Director Of Counseling Assist: Marge Rubio; Lorie Avila RN COMPLICATIONS [...] Dover MD May 30, 2024 8:25 AM [place] [id number] Attending History and physical note* Daniel Dover [...] virus infection), Hyperlipidemia, Hyperthyroidism, Hypothyroidism, Liver disease, MN (myocardial infarction), Migraine, EMMETT (obstructive sleep apnea), Pacemaker, Renal disease, Seizure, Sickle cell anemia, Stroke, TIA (transient ischemic attack), or Vascular disease. Past Surgical History She has no past surgical history on file. Past GROUNDMAN History OB History Para Term AB Living [...] ENT/Mouth:negative Cardiovascular:negative Respiratory: negative Gastrointestinal:negative Musculoskeletal:negative Objective: Uplands Division Director: Grisel Patient refuses Uplands Division Director: N/A Physical Exam BP 114/76 (BP Location: [...] Plan: Hysteroscopy with Symphion removal of POC. [place] [id number] History and physical note* Daniel Dover MD [...] virus infection), Hyperlipidemia, Hyperthyroidism, Hypothyroidism, Liver disease, [place] (myocardial infarction), Migraine, EMMETT (obstructive sleep apnea), Pacemaker, Renal disease, Seizure, Sickle cell anemia, Stroke, TIA (transient ischemic attack), or Vascular disease. Past Surgical History She has no past surgical history on file. Past GROUNDMAN History OB History Para Term AB Living [...] ENT/Mouth:negative Cardiovascular:negative Respiratory: negative Gastrointestinal:negative Musculoskeletal:negative Objective: Uplands Division Director: Grisel Patient refuses Uplands Division Director: N/A Physical Exam BP 114/76 (BP Location: [...] Symphion removal of POC. documented in this [facility]02-05-2025 History and physical note* Rhina Rosenthal [...] [facility] instructed on home medications per anesthesia guidelines and/ or surgeon guidelines. Also aware of needing a food mobile driver dos. AVS sent. [facility] [id number] History and physical note* Rhina Rosenthal RN [...] before, for their arrival time in the [facility]. Pt instructed on home medications per anesthesia guidelines and/ or surgeon guidelines. Also aware of needing a food mobile driver dos. AVS sent. documented in this [facility]02-05-2025 History of Present illness Narrative* aMrcelina Sandoval RN - 05/23/2024 8:00 AM EST Message was left in regards to upcoming procedure at [facility]. documented in this [facility]02-05-2025 Instructions* Patient Instructions* Rhina Rosenthal RN - 05/23/2024 8:00 AM EST Pre-Operative Surgery Instructions Your surgery is scheduled on 05-30-2024. The [facility] Surgery Department will call you the [...] date unless instructed by your physician or registered sales assistant -If you are diabetic, obtain instructions regarding [...] meds, (as instructed per Pre-Admission testing or sizing end bander), seizure meds, thyroid meds, ulcer and reflux [...] a hair clipper will be used [facility] instead of a razor to decrease [...] (jewelry, money) at home. Remove makeup, nail malagasy and piercings prior to your procedure day. [...] or concerns, please contact Pre-admission Testing at [phone]. * Attachments The following attachments cannot be sent through Care Everywhere. * Pain Management: Log ([employer]) (Ivorian) documented in this [facility]02-04-2025 History and physical note* Daniel Dover [...] virus infection), Hyperlipidemia, Hyperthyroidism, Hypothyroidism, Liver disease, [place] (myocardial infarction), Migraine, EMMETT (obstructive sleep apnea), Pacemaker, Renal disease, Seizure, Sickle cell anemia, Stroke, TIA (transient ischemic attack), or Vascular disease. Past Surgical History She has no past surgical history on file. Past GROUNDMAN History OB History Para Term AB Living [...] ENT/Mouth:negative Cardiovascular:negative Respiratory: negative Gastrointestinal:negative Musculoskeletal:negative Objective: Uplands Division Director: Grisel Patient refuses [employer]ands Division Director: N/A Physical Exam BP 114/76 (BP Location: [...] Plan: Hysteroscopy with Symphion removal of POC. [facility] [id number] History and physical note* Daniel Dover MD [...] virus infection), Hyperlipidemia, Hyperthyroidism, Hypothyroidism, Liver disease, [place] (myocardial infarction), Migraine, EMMETT (obstructive sleep apnea), Pacemaker, Renal disease, Seizure, Sickle cell anemia, Stroke, TIA (transient ischemic attack), or Vascular disease. Past Surgical History She has no past surgical history on file. Past GROUNDMAN History OB History Para Term AB Living [...] ENT/Mouth:negative Cardiovascular:negative Respiratory: negative Gastrointestinal:negative Musculoskeletal:negative Objective: Uplands Division Director: Grisel Patient refuses Uplands Division Director: N/A Physical Exam BP 114/76 (BP Location: [...] Symphion removal of POC. documented in this [facility]02-04-2025 History of Present illness Narrative* Grisel [...] for detail of plan. documented in this encounterCLEVELAND [id number] History of Present illness Narrative* Grisel Sibley [...] DATING ABDOMINAL < 14WEEKS documented in this encounterCLEVELAND CLINIC MENTOR [id number] History of Present illness Narrative* Grisel Negro [...] Psychological ROS: no depression, no anxiety Objective: [employer] Director: Teena* Pt refused [employer] Director: N/A Physical Exam Last menstrual period 08/06/2023. General appearance: alert, cooperative, appears stated age Abdomen: soft, non-tender. Bowel sounds normal. No masses, no organomegaly Extremities: extremities normal, atraumatic, no cyanosis or edema Skin: Skin color, texture, turgor normal. No rashes or lesions PORTFOLIO ARCHITECT: External Genitalia:adequate for A/S BUS:neg for MINT [...] Future Daniel Dover MD documented in this encounterCLEVELAND CLINIC M[facility]OR [id number] Emergency department Note* Ronna Reyna RN - 08/06/2023 6:53 PM EDT Discharge instructions reviewed with dad and patient. Both verbalized understanding and denied needs or questions at this time. [id number] Emergency department Note* Ronna Reyna RN - [...] Camilo PA-C - 08/06/2023 4:57 PM EDT [facility] Emergency Department [address] [place] [address] Chief Complaint Chief Complaint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 Role/Relationship Status Dates No Primary Care Physician Primary Care Provider Active Start: October 29, 2024 Bo Martinez MD Emergency Provider Active Star t: October 29, 2024 Dr. Kadi Rivera MD Attending Provider Active Start: October 29, 2024 Dr. Kadi Rivera MD Referring Provider Active Start: October 29, 2024 Team Status: Inactive Member Role/Relationship Status Dates No Primary Care Physician Primary Care Provider Active Start: October 29, 2024 End: October 30, 2024 Bo Martinez MD Emergency Provider Active Star t: October 29, 2024 End: October 30, 2024 Dr. Kadi Rivera MD Attending Provider Active Start: October 29, 2024 End: October 30, 2024 Dr. Kadi Rivera MD Referring Provider Active Start: October 29, 2024 End: October 30, 2024 Scheduled Active and Recently Administ ered Medications (unrecognized section and content) Medication Order 08/04/2023 08/05/2023 08/06/2023 Lactated ringers IV solution 1,000 mL (COMPLETED) 1,000 mL, Intravenous, at 999 mL/hr, ONCE, 1 dose, On 08/06/23 at 1730 1736 ($$New Bag$$ - Provider: Negrito Haile, RN)1840 (Stopped - Provider: Ronna Reyna RN) Morphine [...] 0615 (Due)1027 (Give n - Provider: Debbie Cuevas RN) Continuous Medication Order 05/28/2024 05/29/2024 05/30/2024 Lactated ringers IV solution Intravenous, at 125 mL/hr, CONTINUOUS, Starting on Tue05/30/24 at 0615, Until Tue05/30/24 at 1307, Pre-op/Pre-Proc 0635 ($$New Bag$$ - Provider: Kelsie Reid RN)0724 (Anesthesia Volume Adjustment - Provider: Sharyn Aguilera MD)1055 (Stopped - Provider: Debbie Cuevas RN) Lactated ringers IV solution Intravenous, at 100 [...] 2 g, Intravenous, Administer over 30 Minutes, TRAFFIC SERGEANT TO PROCEDURE, 1 dose, Starting on Tue05/30/24 [...] (TORADOL) injection 30 mg 30 mg, Intravenous, TRAFFIC SERGEANT TO PROCEDURE, Starting on Tue05/30/24 at 0603, [...] 1307, Nausea / Vomiting, 1st line, Post-op/Post-Proc Source Comments (unrecognize d section and content) In the event this informatio n is protected by the [facility] Confidentiality of Alcohol and Drug Abuse Patient Records regulations: The Federal rules restrict any use of the information to criminally investigate or prosecute any alcohol or drug abuse patient. INFORMATION SOURCE (unrecogn ized section and content) DATE CREATED AUTHOR 08/28/2024 [facility] DATE CREATED AUTHOR AUTHOR'S ORGANIZ ATION 11/17/2024 [facility] ([place]) DATE CREATED AUTHOR AUTHOR'S ORGANIZ ATION 02/28/2025 [facility] Goals (unrecognized section and content) Goals may [...] BE BASED ON THE PRIMARY CLINICAL RECORDS. [facility]. provides no warranty or guarantee of the accuracy or completeness of information in this document.
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
[2025-03-22 02:39] VITALS: BP 121/79; PULSE 65; RESP 18; TEMP 36.7; O2SAT 99
== END 2025-03-22 02:39 | disposition home or self-care (01) ==
PROVIDERS: Emergency Provider Specialist/Technologist Athletic Trainer; Visit Provider Specialist/Technologist Athletic Trainer
DX: S01.01XA Laceration without foreign body of scalp, initial encounter (principal); Y04.8XXA Assault by other bodily force, initial encounter; F17.210 Nicotine dependence, cigarettes, uncomplicated; S09.90XA Unspecified injury of head, initial encounter; F17.290 Nicotine dependence, other tobacco product, uncomplicated
CPT/HCPCS: 70450; 70486; 70498; 80048; 84703; 99285; Q9967; A4216